=== PATIENT | male | born 1980 | race African-American/Black ===

== ENCOUNTER 2017-06-21 10:00 | Inpatient (IN) ==
[2017-06-21] MEDS ORDERED: FUROSEMIDE 100 MG/10 ML VIAL IV STA (11:44)
[2017-06-21] MEDS ORDERED: METOPROLOL TARTRATE 5 MG/5 ML VIAL IV STA (11:46)
[2017-06-21] MEDS ORDERED: hydrALAZINE 20 MG/1 ML VIAL IV STA (11:46)
[2017-06-21] MEDS ORDERED: METOPROLOL TARTRATE 5 MG/5 ML VIAL IV ONE (12:03)
[2017-06-21] MEDS ORDERED: FUROSEMIDE 100 MG/10 ML VIAL ONE (12:03)
[2017-06-21] MEDS ORDERED: hydrALAZINE 20 MG/1 ML VIAL ONE (12:03)
[2017-06-21 12:04] LABS: Basophils % 0.2 % (0.0-0.8); Eosinophils # 0.1 10*3/uL (0.0-0.87); Eosinophils % 0.6 % (0.00-10.9); Hematocrit 33.4 VOL% (42.0-52.0); Immature Granulocytes % 0.4 %; Immature Granulocytes Absolute 0.04 #; Lymphocytes # 1.1 10*3/uL (1.4-4.0); Lymphocytes % 11.8 % (21.2-54.2); Mean Corpuscular HGB Conc 32.9 GM/DL (32-36); Mean Corpuscular Hemoglobin 24 PG (27-34); Mean Corpuscular Volume 71.4 FL (87-102); Mean Platelet Volume 11.2 FL (9.6-12.0); Monocytes # 0.6 10*3/uL (0.11-0.8); Monocytes % 6.6 % (1.7-12.7); Neutrophils # 7.2 10*3/uL (1.4-7.4); Neutrophils % 80.4 % (38.7-73.9); Platelet Count 307 T/CUMM (130-400); Red Blood Count 4.68 MC/CUMM (3.8-5.5); Red Cell Distribution Width 14.6 % (9.3-17.3)
--- NOTE | 2017-06-21 12:16 | Order Completion Report ---
See report scanned to EMR
[2017-06-21 12:35] LABS: Albumin 2.7 G/DL (3.4-5.0); Bilirubin,Total 0.8 MG/DL (0.2-1.0); Calcium 7.5 MG/DL (8.5-10.1); Potassium 3.5 MMOL/L (3.5-5.1); Total Protein 6.2 G/DL (6.4-8.3)
[2017-06-21 12:36] LABS: Troponin I Only 0.135 NG/ML (0.00-0.045)
--- NOTE | 2017-06-21 13:13 | XRay Report ---
History: Shortness of breath Date: 06/21/2017 Study: Chest x-ray PA and lateral Comparison exam: April 29, 2014 There is continued cardiomegaly. The pulmonary vasculature is not engorged. The mediastinal contours are normal. The lungs and pleural spaces are clear. Osseous structures are similar. Impression: No definite acute process. Continued cardiomegaly without overt CHF PROCEDURE INTERPRETED AT [facility] DEPARTMENT OF RADIOLOGY Final Report Signed by: Dr. Yajaira Bedoya
[2017-06-21 13:15] LABS: Apearance,Urine CLEAR (Clear); Bilirubin,Urine Negative (Negative); Blood, Urine Negative (Negative); Glucose,Urine (UA) Negative (Negative); Hyaline Casts,Urine 1 /LPF (0-3); Ketones,Urine Negative (Negative); Nitrite,Urine Negative (Negative); Protein,Urine 100 MG/DL; Urine Color Straw (Yellow); Urine Specific Gravity 1.006 (1.001-1.035); Urine Urobilinogen < 2.0 EU/DL (0.2-1.0); WBC,Urine 1 /HPF (0-6)
--- NOTE | 2017-06-21 13:38 | Emergency Department Note ---
Joshua Collier Manpreet, am scribing for, and in the presence of, Hugo Kaur MD 11:45. Vincent Collier Doug C, MD, personally performed the services described in this documentation, ascribed by Chu Lewis in my presence, and it is both accurate and complete 338 . Arrival - Arrival Chief Complaint: Blood Pressure Stated Complaint: swollen legs, coughing bad, and sob ED Nursing Triage Note: coughing for several weeks. reports cough is productive mucousy. has been out of bp med for several weeks. also having some swelling in his legs Mode of Arrival: Ambulatory Limitations: No Limitations Source: Patient - History of Present Illness HPI Narrative: Patient is a 29-year-old black male presents emergency room complaining of leg swelling, cough and shortness of breath is going on for several weeks but much worse over the last 2 days. He denies any chest pain associated with this. He tells me he has been out of his blood pressure medicine now for several weeks. He does not have any diaphoresis, nausea or vomiting. He denies any neck shoulder or arm discomfort. States he has noticed that he gets short of breath with the slightest of exertion. He is sleeping okay and has no symptoms suggesting PND or orthopnea. He has a past medical history of hypertension but he denies diabetes or any heart disease. Onset (ago): day(s) (2 days ago) Consistency: constant Severity: moderate Severity scale (1-10): 3 Allergies/Adverse Reactions: Allergies Allergy/AdvReac Type Severity Reaction Status Date / Time No Known Allergies Allergy Unverified 06/21/17 10:17 Home Medications: Home Medications Medication Instructions Recorded Confirmed Type Unable To Obtain [Unable to Obtain] 06/21/17 06/21/17 History Review of System - Review of System 12 point system: reviewed and no additional remarkable complaints except as stated - Review of System Constitutional: Present: other (Elevated B/P). Absent: chills, diaphoresis, fever Respiratory: Present: respiratory distress. Absent: cough, wheezing Cardiovascular: Present: edema (In bilat LE's). Absent: chest pain Gastrointestinal: Absent: abdominal pain, nausea, vomiting, diarrhea Genitourinary male: Absent: dysuria Musculoskeletal: Absent: arm pain, back pain Neurological: Absent: headache, weakness, numbness, paresthesias Medical,Surgical,& Family Hx - Medical History Cardio: History of: Hypertension Endocrine: History of: Diabetes Mellitus (NIDDM) - Surgical History Surgical History: noncontributory - Family History Family History: Reports;: Family Hypertension - Social History Smoking Status: Never smoker Exam Vital Signs: Vital Signs Temperature 98.5 F 06/21/17 10:13 Pulse Rate 89 06/21/17 13:00 Respiratory Rate 20 06/21/17 13:00 Blood Pressure 171/122 06/21/17 13:00 O2 Sat by Pulse Oximetry 96 06/21/17 13:00 - General General appearance: alert - Head Head exam: Present: atraumatic, normocephalic, normal inspection - Eye Eye exam: Present: normal appearance, PERRL, EOMI - ENT ENT exam: Present: normal exam, normal oropharynx, mucous membranes moist - Neck Neck exam: Present: normal inspection, full ROM, trachea midline - Chest Chest inspection: Present: normal inspection, symmetric chest wall rise - Respiratory Respiratory exam: Present: normal lung sounds bilaterally. Absent: respiratory distress - Cardiovascular Cardiovascular exam: Present: regular rate, normal rhythm, normal heart sounds. Absent: murmur, rubs, gallop - Abdominal Exam Abdominal exam: Present: soft, normal bowel sounds - Extremities Exam Extremities exam: Present: normal inspection, full ROM, other (+2 pitting edema) . Absent: tenderness - Back Exam Back exam: Present: normal inspection, full ROM. Absent: tenderness - Neurological Exam Neurological exam: Present: alert, oriented X3, CN II-XII intact - Psychiatric Psychiatric exam: Present: normal affect, normal mood - Skin Skin exam: Present: warm, dry, intact, normal color. Absent: pallor Course Course Narrative: Patient's clinical presentation, laboratory and radiograph findings were discussed with Laurence who is covering the hospitalist service. She will see the patient in the emergency room and determine final disposition. Results - Labs CBC & BMP: 06/21/17 11:55 06/21/17 11:55 Lab Results: I have reviewed the patients labs Labs: Laboratory Tests 06/21/17 11:55 WBC 9.0 RBC 4.68 Hgb 11.0 L Hct 33.4 L MCV 71.4 L MCH 24 L MCHC 32.9 RDW 14.6 Plt Count 307 MPV 11.2 Neut % (Auto) 80.4 H Lymph % (Auto) 11.8 L [place] % (Auto) 6.6 Eos % (Auto) 0.6 Baso % (Auto) 0.2 Neut # (Auto) 7.2 Lymph # (Auto) 1.1 L [place] # (Auto) 0.6 Eos # (Auto) 0.1 Baso # (Auto) 0.0 Immature Gran % 0.4 Nucleated RBC % 0.0 Immature Gran # 0.04 Nucleated RBCs # 0.00 Immature Plt Fraction 0.0 Laboratory Tests 06/21/17 11:55 D-Dimer, Quantitative 2.5 Laboratory Tests 06/21/17 11:55 Sodium 143 Potassium 3.5 Chloride 106 Carbon Dioxide 27 Anion Gap 13.5 BUN 53 H Creatinine 3.90 H GFR Calculation 30 BUN/Creatinine Ratio 13.00 Glucose 116 H Calculated Osmolality 299.0 Calcium 7.5 L Total Bilirubin 0.80 AST 21 ALT 26 Alkaline Phosphatase 52 Troponin I 0.135 H Total Protein 6.2 L Albumin 2.7 L Globulin 3.5 Albumin/Globulin Ratio 0.7 L Laboratory Tests 06/21/17 11:55 B-Natriuretic Peptide 1527 H Laboratory Tests 06/21/17 11:55 Urine Color Straw Urine Appearance Clear Urine pH 6.0 Ur Specific [place] 1.006 Urine Protein 100 Urine Glucose (UA) Negative Urine Ketones Negative Urine Blood Negative Urine Nitrate Negative Urine Bilirubin Negative Urine Urobilinogen < 2.0 H Urine Leukocytes Negative Urine WBC 1 Hyaline Casts 1 Ur Culture Indicated? Not indicated - EKG EKG results: interpreted by ERMD, sinus rhythm (92 bpm) - Diagnostic Findings Procedure: Chest x-ray: report reviewed by me ("CXR: No definite acute process. Continued cardiomegaly without overt CHF.") Disposition Clinical Impression: Uncontrolled hypertension Case discussed with: patient Disposition: Still a Patient Condition: Stable Time of Disposition: 13:38
[2017-06-21] MEDS ORDERED: niCARdipine 25 MG/10 ML VIAL IV ONE (13:54)
[2017-06-21] MEDS: niCARdipine INJ 25 MG in SODIUM CHLORIDE 0.9% 240 ML IV SCH ×3 (14:00→20:58)
[2017-06-21] MEDS ORDERED: ALBUTEROL 2.5 MG/3 ML NEB RESP TX PRN (15:02)
[2017-06-21] MEDS ORDERED: ACETAMINOPHEN 325 MG TABLET PO PRN (15:02)
[2017-06-21] MEDS ORDERED: ONDANSETRON 4 MG/2 ML VIAL IV PRN (15:02)
[2017-06-21] MEDS ORDERED: INFLUENZA VIRUS VACCINE 0.5 ML SYRINGE IM ONE (15:03)
[2017-06-21] MEDS: FUROSEMIDE 40 MG/4 ML VIAL IV SCH (16:10)
--- NOTE | 2017-06-21 16:14 | Hospitalist History & Physical ---
Assessment and Plan (1) Uncontrolled hypertension Status: Acute Assessment and plan: Admit to ICU for close monitoring. Pt. placed on Cardene infusion. PO agents ( Coreg and Procardia) started. Obtain echo. BNP 1527. Repeat in am. CXR didn't show overt chf. Lasix IV 40 mg BID. Consult cardiology in am. Current Visit: Yes (2) Renal failure Status: Acute Assessment and plan: Bun/creatinine 53/3.90. Consult nephrology to evaulate. Renal ultrasound. Avoid nephrotoxic agents. Daily bmps. Current Visit: Yes (3) Elevated troponin Status: Acute Assessment and plan: Elevated troponin could be trivial in light of renal insufficiency. Will cycle enzymes. No cardiac complaints from patient. EKG NSR Current Visit: Yes History of Present Illness Chief complaint: edema and cough History of present illness: Mr. Aguilar is a 37 year old black male with a history of htn and LEATHA that presents to the ED with complaints of leg swelling and productive cough. Pt. is accompanied by family. Pt's states that two days on he woke up and found that his lower extremities were swollen. Pt. reports that this was unusual for him. It states that it has persisted since that time. Pt. also reports a "nagging" cough that produces yellow sputum. He denies chest pain, nausea, or vomiting. Pt. does report shortness of breath with exertion. Pt. states that he has sleep apnea but has not utilized his cpap machine in months due to malfunctions. In ED, patient is noted to be extremely hypertensive (200s/ 120s). Pt. states he has been out of his blood pressure meds for the last week. Pt. is followed by Dr. Crespo but has not seen him. Significant labs reveal a bun/creatinine 53/3.90, glucose 116, BNP 1527, and troponin of 0.135. Pt's case has been discussed with ER physician Dr. Kaur and hospitalist Dr. Martel. Because pt's blood pressure is uncontrolled and there is renal insufficiency noted, pt. will be admitted for further evaluation. Home Medications Medication Instructions Recorded Confirmed Type Unable To Obtain [Unable to Obtain] 06/21/17 06/21/17 History Allergies Allergy/AdvReac Type Severity Reaction Status Date / Time No Known Allergies Allergy Unverified 06/21/17 10:17 Medical,Surgical,& Family Hx - Medical History Cardio: History of: Hypertension Endocrine: History of: Diabetes Mellitus (NIDDM) - Surgical History Cardiac Surgeries: Patient Denies: Cardiac Catheterization Neurologic Surgeries: Patient denies: Neurologic Surgery HEENT Surgeries: Patient denies: Eye Surgery, Tonsilectomy & Adenoidectomy - Family History Family History: Reports;: Family Hypertension Denies;: Family Cancer, Family Diabetes, Family Heart Disease, Family Hematology, Family Psychiatric Problems, Family Stroke, Additional Family History - Social History Smoking Status: Never smoker Frequency of Alcohol Use: None Type of Drug Use: None Marital Status: Single Lives With:: Parent Functional capacity: independent ambulation 12 point system: reviewed and no additional remarkable complaints except as stated - Cardiovascular Cardiovascular: Present: dyspnea on exertion, edema. Absent: chest pain at rest , radiating jaw, neck or arm pain - Respiratory Respiratory: Present: cough (productive) Exam - Constitutional Vitals: Period Temp Pulse Resp BP Sys/Modi Pulse Ox Last 24 Hr 98.5 F-99.1 F 89-105 16-26 153-221/102-141 9-99 General appearance: no acute distress, over weight - Head Head exam: Present: normal inspection, normocephalic - Eye Eye exam: Present: EOMI Pupils: Present: MAYTE - ENT ENT exam: Present: normal exam - Respiratory Respiratory exam: Present: clear to auscultation bilaterally. Absent: wheezes - Cardiovascular Cardiovascular exam: Present: tachycardia - GI/Abdominal GI/Abdominal exam: Present: normal bowel sounds, soft. Absent: tenderness, rebound - Extremities Exam Extremities exam: Present: full ROM, edema - Neurological Exam Neurological exam: Present: alert, oriented X3 - Psychiatric Psychiatric exam: Present: normal affect, normal mood - Skin Skin exam: Present: normal color, warm, dry Results - Labs CBC & BMP: 06/21/17 11:55 06/21/17 11:55 Lab Results: I have reviewed the past 24 hour labs
[2017-06-21] MEDS ORDERED: ZALEPLON 5 MG CAPSULE PO PRN (16:57)
--- NOTE | 2017-06-21 17:07 | Event Note ---
Patient seen and examined and agree with the treatment outlined. He states he has been out of his antihypertensive medicines for the past week. Presented with weakness shortness of breath. He is now on Cardene infusion and continued to show signs of improvement. He has been voiding with Lasix. Cardiovascular regular rate. Lungs are clear to auscultation. Abdomen is soft. Hypertensive urgency. Obesity. TSH. T4. Coreg 6.25 mg p.o. twice daily. Procardia 30 mg XL daily. Omeprazole 20 mg daily CBC BMP in a.m.
--- NOTE | 2017-06-21 19:17 | Ultrasound Report ---
History: Renal failure Date: 06/21/2017 Study: Renal ultrasound Comparison exam: November 22, 2013 Real-time ultrasound images are captured and archived. The right kidney measures 14.2 x 9.3 x 11.0 cm; the left kidney measures 14.3 x 8.2 x 0.5 cm. There is no hydronephrosis. 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 There is no obvious solid mass or hydronephrosis. Numerous simple cysts and septated class II F renal cysts are scattered in the right kidney, the largest 2F cyst of which measures 4.6 cm diameter in the mid right kidney. Similar-appearing cysts are noted on the left, the largest of which measures 6.4 cm. The renal parenchyma is hyperechoic to the hepatic parenchyma compatible with medical renal parenchymal disease. There is gross color Doppler flow to either kidney. Impression: No hydronephrosis. Medical renal parenchymal disease. Numerous simple and class II F renal cysts are present bilaterally. Recommend periodic follow-up renal ultrasound at 6-12 month intervals PROCEDURE INTERPRETED AT [facility] DEPARTMENT OF RADIOLOGY Final Report Signed by: Dr. Yajaira Bedoya
[2017-06-21 20:30] LABS: Troponin I Only 0.145 NG/ML (0.00-0.045)
[2017-06-21] MEDS: CARVEDILOL 6.25 MG TABLET PO SCH (21:24)
[2017-06-22 00:43] LABS: Basophils % 0.4 % (0.0-0.8); Eosinophils # 0.1 10*3/uL (0.0-0.87); Eosinophils % 1.4 % (0.00-10.9); Hematocrit 32.5 VOL% (42.0-52.0); Hemoglobin 10.7 GM/DL (14.0-18.0); Immature Granulocytes % 0.3 %; Immature Granulocytes Absolute 0.03 #; Lymphocytes % 10.9 % (21.2-54.2); Mean Corpuscular HGB Conc 32.9 GM/DL (32-36); Mean Corpuscular Hemoglobin 23 PG (27-34); Mean Platelet Volume 10.7 FL (9.6-12.0); Monocytes # 0.6 10*3/uL (0.11-0.8); Monocytes % 6.6 % (1.7-12.7); Neutrophils # 7.3 10*3/uL (1.4-7.4); Neutrophils % 80.4 % (38.7-73.9); Platelet Count 307 T/CUMM (130-400); Red Blood Count 4.58 MC/CUMM (3.8-5.5); Red Cell Distribution Width 14.6 % (9.3-17.3); White Blood Count 9.1 T/CUMM (4-12)
[2017-06-22] MEDS: niCARdipine INJ 25 MG in SODIUM CHLORIDE 0.9% 240 ML IV SCH ×2 (00:45→14:11)
[2017-06-22 00:54] LABS: Calcium 7.6 MG/DL (8.5-10.1); Magnesium 1.4 MG/DL (1.8-2.4); Osmolality,Calculated 300.8 MOS/KG (273-304); Potassium 3.1 MMOL/L (3.5-5.1); Risk Ratio 4.28
[2017-06-22 00:58] LABS: Troponin I Only 0.245 NG/ML (0.00-0.045)
[2017-06-22 05:39] LABS: Troponin I Only 0.321 NG/ML (0.00-0.045)
--- NOTE | 2017-06-22 07:30 | Hospitalist Progress Note ---
Assessment and Plan - Time spent with patient Time spent with patient: Less than 30 minutes (1) Hypertensive urgency Status: Acute Assessment and plan: Patient was admitted with hypertensive urgency. He has been on IV Cardene which is now been discontinued. He has been started on Coreg and Procardia. We will continue to follow and if his blood pressures remain stable can be transferred out of the ICU later today if consultants agree. Current Visit: Yes (2) Renal failure Status: Acute Assessment and plan: Patient was admitted with renal failure, creatinine 3.9 which has remained stable. Nephrology will be consulted. Current Visit: Yes (3) Elevated troponin Status: Acute Assessment and plan: Patient was noted to have elevated troponins which have been trending upwards. He denies any chest pain. This is likely secondary to his hypertensive urgency and underlying renal failure. However cardiology has been consulted and will await their recommendations. Current Visit: Yes Hospitalist: Subjective Interval history: Patient has been seen and examined. Chart has been reviewed. He is somewhat lethargic this morning but easily aroused and answers questions appropriately. He denies any chest pain, shortness breath, abdominal pain, nausea, vomiting, diarrhea, constipation. Exam - Constitutional Vitals: Period Temp Pulse Resp BP Sys/Modi Pulse Ox Last 24 Hr 98.5 F-99.8 F 88-106 11-37 119-221/62-141 85-99 General appearance: no acute distress - Head Head exam: Present: normocephalic, atraumatic - Eye Eye exam: Present: EOMI Pupils: Present: MAYTE - ENT ENT exam: Present: normal exam - Neck Neck exam: Present: normal inspection. Absent: lymphadenopathy, meningismus, tenderness, thyromegaly - Respiratory Respiratory exam: Present: clear to auscultation bilaterally. Absent: rales, rhonchi, wheezes - Cardiovascular Cardiovascular exam: Present: regular rate and rhythm. Absent: JVD, systolic murmur, tachycardia - GI/Abdominal GI/Abdominal exam: Present: normal bowel sounds, soft. Absent: mass, tenderness , rebound - Extremities Exam Extremities exam: Present: normal capillary refill. Absent: calf tenderness, edema - Back Exam Back exam: Present: normal inspection - Neurological Exam Neurological exam: Present: alert, oriented X3, CN II-XII intact. Absent: motor sensory deficit - Psychiatric Psychiatric exam: Present: normal affect, normal mood. Absent: agitated, anxious - Skin Skin exam: Present: warm, dry. Absent: rash Results - Labs CBC & BMP: 06/22/17 00:19 06/22/17 00:19 Lab Results: I have reviewed the past 24 hour labs
[2017-06-22] MEDS: CARVEDILOL 6.25 MG TABLET PO SCH ×2 (08:37→21:29)
[2017-06-22] MEDS: PANTOPRAZOLE 40 MG TABLET PO SCH (08:37)
[2017-06-22] MEDS: POTASSIUM CHLORIDE 20 MEQ TABLET PO SCH ×2 (08:38→14:22)
[2017-06-22] MEDS: FUROSEMIDE 40 MG/4 ML VIAL IV SCH ×2 (08:38→15:32)
--- NOTE | 2017-06-22 11:19 | Nephrology Consult Note ---
History of Present Illness Chief complaint: Hypertension shortness of breath. History of present illness: Mr. Aguilar is a 37 year old male patient with a history of hypertension and diabetes who presented on yesterday with severe hypertension shortness of breath. The patient has required Cardene infusion for blood pressure management. He has now been switched to p.o. antihypertensive medications. Of note, patient mentions that he had been out of his medicines for some time. Serum creatinine is noted to be above 3. Nephrology is been consulted for renal issues. On further interview with the patient patient thinks he may have seen a safety deposit clerk over several years ago and he has not followed with his primary provider in about 2-3 years as well. At present no shortness of breath or chest pain. No rashes or bruises reported by patient. Undetermined patient uses NSAID medications. Serum creatinine noted to be 3.9 today. Renal ultrasound done yesterday shows evidence of medical renal disease. There is no history of dysuria or hematuria. Home Medications Medication Instructions Recorded Confirmed Type Unable To Obtain [Unable to Obtain] 06/21/17 06/21/17 History Allergies Allergy/AdvReac Type Severity Reaction Status Date / Time No Known Allergies Allergy Unverified 06/21/17 10:17 Medical,Surgical,& Family Hx - Medical History Cardio: History of: Hypertension Endocrine: History of: Diabetes Mellitus (NIDDM) - Surgical History Cardiac Surgeries: Patient Denies: Cardiac Catheterization Neurologic Surgeries: Patient denies: Neurologic Surgery HEENT Surgeries: Patient denies: Eye Surgery, Tonsilectomy & Adenoidectomy - Family History Family History: Reports;: Family Hypertension Denies;: Family Cancer, Family Diabetes, Family Heart Disease, Family Hematology, Family Psychiatric Problems, Family Stroke, Additional Family History - Social History Smoking Status: Never smoker Frequency of Alcohol Use: None Type of Drug Use: None Review of Systems Constitutional: fatigue, no anorexia, no chills, no fever(s) Gastrointestinal: no constipation Genitourinary: no dysuria, no flank pain Musculoskeletal: no arthralgias, no back pain Exam - Vital Signs Vital signs: Period Temp Pulse Resp BP Sys/Modi Pulse Ox Last 24 Hr 98.6 F-99.8 F 88-106 11-37 119-221/62-141 85-99 - General Appearance General appearance: well-developed, well-nourished EENT: ATNC Neck: no carotid bruit, supple Respiratory: clear Cardiology: no edema, regular rate, regular rhythm Gastrointestinal: normoactive bowel sounds, no tenderness Integumentary: no rash Neurologic: alert and oriented x3, CN 3-12 intact Musculoskeletal: no clubbing Psychiatric: mood/affect appropriate, cooperative Results - Labs CBC & BMP: 06/22/17 00:19 06/22/17 00:19 Assessment and Plan (1) Diabetes Status: Chronic Current Visit: Yes Qualifiers: Diabetes mellitus type: type 2 Chronic kidney disease stage: stage 3 ( moderate) (2) Renal failure Status: Chronic Current Visit: Yes Qualifiers: Chronic kidney disease stage: stage 3 (moderate) (3) Elevated troponin Status: Acute Current Visit: Yes (4) Hypertensive urgency Status: Resolved Assessment and plan: Medical compliance. Current Visit: Yes (5) Obesity Status: Chronic Current Visit: Yes Qualifiers: Obesity type: due to excess calories Body mass index: BMI 39.0-39.9
--- NOTE | 2017-06-22 13:37 | Order Completion Report ---
See report scanned to EMR
[2017-06-22] MEDS ORDERED: POTASSIUM CHLORIDE 20 MEQ TABLET PO ONE (14:30)
[2017-06-23 06:27] LABS: Basophils % 0.5 % (0.0-0.8); Eosinophils # 0.3 10*3/uL (0.0-0.87); Eosinophils % 4.4 % (0.00-10.9); Hematocrit 31.7 VOL% (42.0-52.0); Hemoglobin 10.3 GM/DL (14.0-18.0); Immature Granulocytes % 0.4 %; Immature Granulocytes Absolute 0.03 #; Lymphocytes # 1.2 10*3/uL (1.4-4.0); Lymphocytes % 15.3 % (21.2-54.2); Mean Corpuscular HGB Conc 32.5 GM/DL (32-36); Mean Corpuscular Hemoglobin 23 PG (27-34); Mean Platelet Volume 11.5 FL (9.6-12.0); Monocytes # 0.8 10*3/uL (0.11-0.8); Monocytes % 10.5 % (1.7-12.7); Neutrophils # 5.4 10*3/uL (1.4-7.4); Neutrophils % 68.9 % (38.7-73.9); Platelet Count 304 T/CUMM (130-400); Red Cell Distribution Width 14.6 % (9.3-17.3); White Blood Count 7.8 T/CUMM (4-12)
[2017-06-23 06:56] LABS: Calcium 7.4 MG/DL (8.5-10.1); Osmolality,Calculated 298.1 MOS/KG (273-304); Potassium 3.4 MMOL/L (3.5-5.1)
[2017-06-23] MEDS ORDERED: CARVEDILOL 25 MG TABLET PO SCH (08:13)
[2017-06-23] MEDS: PANTOPRAZOLE 40 MG TABLET PO SCH (08:14)
[2017-06-23] MEDS: FUROSEMIDE 40 MG/4 ML VIAL IV SCH (08:14)
--- NOTE | 2017-06-23 09:14 | Cardiology Consult Note ---
Amira, Ariane Hansen RN, am scribing for, and in the presence of, Farhad Sanchez MD 09 :07. Assessment and Plan - Time spent with patient Time spent with patient: Greater than 30 minutes (Due to assessment, planning, documentation, medication review) (1) Troponin I above reference range Status: Resolved Assessment and plan: 37-year-old BM, admitted with hypertensive urgency. Demand ischemia, mild cardiomyopathy, severe EFRAIN, on CKD. Past medical history hypertension, diabetes , LEATHA, renal insufficiency, obesity.Rahul out of antihypertensives medicines approximately 1 week ago. Required brief IV Cardene infusion, BP much improved now. Echo: LVEF 45%, mild DD EKG: SR, ST 90s -Hypertensive urgency. Now, BP back to normal with Coreg and nifedipine. -Type 2 diabetes mellitus, hemoglobin A1c 6.8. Start aspirin 81 mg daily. -He will need to resume using CPAP for LEATHA -Mild CMP, borderline troponins with normal CPK-MB. I doubt ACS. Has LVH. Recommend to use maximum tolerated dose of beta-eligio, then reassess CMP with an ultrasound in several weeks. He may need ischemic evaluation, if the CMP persists, despite good BP control -Polycystic kidney disease, EFRAIN on CKD. This limits use of an FABIAN inhibitor at this time. If blood pressure becomes elevated, we can try adding Imdur/ hydralazine. -Diuresis managed by renal. No signs of significant volume overload or pulmonary congestion -Cardiac rehab for risk factor modification. We discussed his exercise regimen , I suggest not to do isometric exercises, until the blood pressure becomes better controlled. -LDL slightly above 100. If unable to lose weight, improve his metabolic profile, he would be a candidate for statin given his comorbidities -Follow up in [facility] with Dr. Sanchez in 4 weeks -Please call with further questions. He may be moved off telemetry Current Visit: Yes (2) Hypertensive urgency Status: Resolved Assessment and plan: See Impression/Plan Above. Current Visit: Yes (3) Uncontrolled hypertension Status: Chronic Assessment and plan: See Impression/Plan Above. Current Visit: Yes (4) Diabetes Status: Chronic Assessment and plan: See Impression/Plan Above. Current Visit: Yes Qualifiers: Diabetes mellitus type: type 2 Chronic kidney disease stage: stage 3 ( moderate) (5) Obesity Status: Chronic Assessment and plan: See Impression/Plan Above. Current Visit: Yes Qualifiers: Obesity type: due to excess calories Body mass index: BMI 39.0-39.9 (6) Renal failure Status: Chronic Assessment and plan: See Impression/Plan Above. Current Visit: Yes Qualifiers: Chronic kidney disease stage: stage 3 (moderate) History of Present Illness - Data of Consult Patient: new to practice Consult date: 06/23/17 Requesting Physician: iLam Islas - Consult Narrative Reason for consult: Abnormal troponin, hypertensive emergency History of present illness: Mr. Aguilar, 37-year-old BM, PMHx obesity, diabetes and hypertension (poorly controlled) and LEATHA. Noncompliant with CPAP machine for several months now due to reported malfunctions. He recently ran out of antihypertensive medications, did not refill them. Admitted to [facility] on 06/21 with c/o lower extremity swelling, productive cough, and some shortness of breath. BP was significantly elevated 220s/120s. Since admission, he has been initiated on beta-eligio and calcium channel eligio. Required brief IV Cardene infusion for BP control, and BP is more improved now. Diuresis with IV Lasix. Initial lab work showed troponin 0.135 with creatinine 3.9. Cardiology asked to see for hypertensive urgency, abnormal troponin, and shortness of breath. Echocardiogram with LVH 45%, mild diastolic dysfunction, mild biatrial enlargement. No pulmonary hypertension, effusion. Renal ultrasound shows chronic kidney disease, and bilateral renal cysts. Nephrology has been consulted to see during admission also. This morning, patient is resting comfortably, lying flat in bed in no acute respiratory distress. Denies experiencing any chest pain. Reports he did have some shortness of breath during acute hypertensive urgency but is now resolved. No significant lower extremity edema upon physical exam. No palpitations, PND. Serial troponin levels have trended down with most recent 0.243, normal CPK and CK-MB. Reports that he does take antidiabetic medications, but he is not certain what his glucose levels have been running home. He has not had any exertional chest pain or dyspnea recently. Mild hypokalemia, 3.4. Creatinine 4.2. Cell counts are stable, and he is afebrile. SBP 120-140 mmHg. Telemetry : SR, mild ST 90s, occasional PAC. No ectopy or dysrhythmia. Overall, patient is much improved since admission to hospital. ROS: -denies chest pain or tightness, palpitations -denies dyspnea. admits productive cough. -denies abd pain, N/V. Good appetite. CC: Kristina Bang MD - Home Medications and Allergies Home Medications: Home Medications Medication Instructions Recorded Confirmed Type Unable To Obtain [Unable to Obtain] 06/21/17 06/21/17 History Allergies/Adverse Reactions: Allergies Allergy/AdvReac Type Severity Reaction Status Date / Time No Known Allergies Allergy Unverified 06/21/17 10:17 - Constitutional Constitutional: Present: daytime sleepiness. Absent: anorexia, chills, excessive sweating, fatigue, fever(s), frequent falls, weakness, weight gain, weight loss - EENT Eyes: Absent: blurry vision Ears: Absent: decreased hearing Nose, mouth and throat: Absent: dysphagia, epistaxis, tongue swelling, vertigo - Cardiovascular Cardiovascular: Present: dyspnea on exertion (Resolved now), edema (Trace pretibial). Absent: chest pain at rest, chest pain with activity, diaphoresis, radiating jaw, neck or arm pain, orthopnea, palpitations, PND - Respiratory Respiratory: Present: cough, change in phlegm color (Yellow phlegm). Absent: dyspnea, dyspnea on exertion - Gastrointestinal Gastrointestinal: Absent: abdominal pain, constipation, diarrhea, dysphagia, early satiety, melena, nausea, vomiting, jaundice - Genitourinary Genitourinary: Absent: difficulty urinating, dysuria, flank pain, nocturia - Musculoskeletal Musculoskeletal: Absent: arthralgias, limited range of motion, muscle weakness, myalgias - Neurological Neurological: Absent: abnormal gait, abnormal speech, confusion, dizziness, syncope, tremor(s) - Psychiatric Psychiatric: Absent: anxiety, depression - Endocrine Endocrine: Absent: cold intolerance, heat intolerance - Hematologic/Lymphatic Hematologic/Lymphatic: Absent: easy bleeding, easy bruising Medical,Surgical,& Family Hx - Medical History Cardio: History of: Hypertension No history of: Cardiac Dysrhythmia, CHF, CAD, PVD Psychological: No history of: Anxiety Disorders, Depression Neurology: No history of: Cerebrovascular Accident, TIA Endocrine: History of: Diabetes Mellitus (NIDDM) No history of: Dyslipidemia, Thyroid Disorder Respiratory: History of: Obstructive Sleep Apnea No history of: COPD, Pulmonary Hypertension Renal: History of: Renal Failure Genitourinary: No history of: Kidney Stones, Prostate Problems Gastrointestinal: No history of: GERD, Gastrointestinal Bleed, Hepatitis Musculoskeletal: No history of: Back/Neck Problems, Degenerative Disk Disease Hematology: No history of: Anemia, Blood Transfusion Reaction Reproductive: No histroy: Reproductive Problems Other: No history of: Cancer, HIV - Surgical History Cardiac Surgeries: Patient Denies: Cardiac Catheterization Neurologic Surgeries: Patient denies: Neurologic Surgery HEENT Surgeries: Patient denies: Eye Surgery, Tonsilectomy & Adenoidectomy - Family History Family History: Reports;: Family Hypertension Denies;: Family Cancer, Family Diabetes, Family Heart Disease, Family Hematology, Family Psychiatric Problems, Family Stroke, Additional Family History - Social History Smoking Status: Never smoker Frequency of Alcohol Use: None Type of Drug Use: None Functional capacity: independent ambulation Physical Examination Vital Signs Temp Pulse Resp BP Pulse Ox 98.5 F 101 H 20 190/140 94 L 06/21/17 10:13 06/21/17 10:13 06/21/17 10:13 06/21/17 10:13 06/21/17 10:13 General: Present: Appears Well, No Apparent Distress HEENT: Present: Normocephaly, Mucus Membranes Moist Neck: Present: Supple Neck, Midline Trachea, No JVD/HJR, No Bruit, No Thyromegaly Cardiac: Present: Reg Rate and Rhythm. Absent: Systolic Murmur Lungs: Present: Normal Breath Sounds, No Wheeze, Rales, Rhonchi Neuro: Present: Grossly Intact Abdomen: Present: Soft, Active Bowel Sounds. Absent: Tender Skin: Present: Clear, Black. Absent: Rash Gait: Present: Normal Gait Extremities: Present: No Clubbing, No Cyanosis, No Edema Result/EKG - Labs CBC & BMP: 06/23/17 05:46 06/23/17 05:46 Lab Results: I have reviewed the past 24 hour labs Labs: Laboratory Results - last 24 hr 06/22/17 06/22/17 06/22/17 14:35 17:25 19:46 WBC RBC Hgb Hct MCV MCH MCHC RDW Plt Count MPV Neut % (Auto) Lymph % (Auto) Placer % (Auto) Eos % (Auto) Baso % (Auto) Neut # (Auto) Lymph # (Auto) Placer # (Auto) Eos # (Auto) Baso # (Auto) Immature Gran % Nucleated RBC % Immature Gran # Nucleated RBCs # Immature Plt Fraction Sodium Potassium Chloride Carbon Dioxide Anion Gap BUN Creatinine GFR Calculation BUN/Creatinine Ratio Glucose Calculated Osmolality Calcium Troponin I 0.282 H 0.286 H 0.243 H 06/23/17 06/23/17 05:46 05:46 WBC 7.8 RBC 4.40 Hgb 10.3 L Hct 31.7 L MCV 72.0 L MCH 23 L MCHC 32.5 RDW 14.6 Plt Count 304 MPV 11.5 Neut % (Auto) 68.9 Lymph % (Auto) 15.3 L Placer % (Auto) 10.5 Eos % (Auto) 4.4 Baso % (Auto) 0.5 Neut # (Auto) 5.4 Lymph # (Auto) 1.2 L Placer # (Auto) 0.8 Eos # (Auto) 0.3 Baso # (Auto) 0.0 Immature Gran % 0.4 Nucleated RBC % 0.0 Immature Gran # 0.03 Nucleated RBCs # 0.00 Immature Plt Fraction 0.0 Sodium 142 Potassium 3.4 L Chloride 104 Carbon Dioxide 25 Anion Gap 16.4 H BUN 56 H Creatinine 4.20 H GFR Calculation 27 BUN/Creatinine Ratio 13.00 Glucose 101 Calculated Osmolality 298.1 Calcium 7.4 L Troponin I - Diagnostic Findings Procedure: Chest x-ray: image reviewed by me, report reviewed by me (06/21/17: Cardiomegaly, no overt CHF) - EKG EKG results: interpreted by me, no acute changes EKG shows: sinus rhythm Laura Collier Attila, MD, personally performed the services described in this documentation, ascribed by Ariane Hansen RN in my presence, and it is both accurate and complete 913 .
[2017-06-23] MEDS ORDERED: ASPIRIN EC 81 MG TABLET PO SCH (09:30)
--- NOTE | 2017-06-23 11:30 | Discharge Summary ---
Hospital Course - Hospital Course Hospital Course: Mr Aguilar ran out of his antiHTn meds about a week before presenting to the ER with chest pain and extremely elevated BP. He required Cardene initially but was converted to his usual oral meds which controlled his blood pressure. It was also noted that he had progression of his renal disease and he was seen by nephrology who will follow him in the clinic for Epogen and was counselled to avoid NSAIDS or other nephrotoxic agents. He will also see DR Sanchez to follow up inclinic. While here he recommended starting asa, avoiding FABAIN at this time due to renal disease, begin modified exercise routine, and to lose weight. His chest pain resolved when his blood pressure was controlled. He was back to feeling like his usual self. He will also follow up with Dr Crespo his PCP in clinic. - Time spent with patient Time with patient DS: Greater than 30 minutes (37 minutes required for discharge planning and coordination of care medicine reconciliation and documentation) Diagnosis - Discharge Diagnosis (1) Elevated troponin Status: Resolved (2) Chronic kidney disease Status: Chronic (3) Diabetes Status: Chronic (4) Obesity Status: Chronic (5) Uncontrolled hypertension Status: Chronic Specialty Discharge - Follow Up or Referrals Follow up with: Your, PCP [Other] - 5 Days Farhad Sanchez MD [Physician] - 07/29/17 2:10 pm (4 weeks. EKG) Shayan Martel Jr., MD [Physician] - 07/30/17 9:00 pm Discharge Plan - Discharge Data Disposition: Disch To Home/Self Care Condition at Discharge: Stable Discharge Diet: diabetic diet, heart healthy Activity: resume usual activities as tolerated (noisometric exercises per caridology) - Discharge Medications New Carvedilol [Coreg] 25 mg PO BID #60 tablet NIFEdipine XL TAB [Procardia Xl] 30 mg PO DAILY #30 tablet Aspirin EC Tab 81 mg PO DAILY tablet - Follow Up or Referral Follow Up: Your, PCP [Other] - 5 Days Farhad Sanchez MD [Physician] - 07/29/17 2:10 pm (4 weeks. EKG) Shayan Martel Jr., MD [Physician] - 07/30/17 9:00 pm - Forms/Instructions Instructions: Heart Healthy Diet (GEN), Chronic Hypertension (GEN) Exam - Constitutional Vitals: Period Temp Pulse Resp BP Sys/Modi Pulse Ox Last 24 Hr 96.5 F-98.6 F 88-94 16-22 119-147/65-93 85-98 General appearance: no acute distress, morbidly obese - Eye Eye exam: Present: EOMI. Absent: scleral icterus - Respiratory Respiratory exam: Present: clear to auscultation bilaterally - Cardiovascular Cardiovascular exam: Present: regular rate and rhythm - GI/Abdominal GI/Abdominal exam: Present: normal bowel sounds, soft. Absent: tenderness - Extremities Exam Extremities exam: Absent: edema Discharge Results Labs on day of discharge: Labs from last 24 hours 06/23/17 06/23/17 06/22/17 05:46 05:46 19:46 WBC 7.8 RBC 4.40 Hgb 10.3 L Hct 31.7 L MCV 72.0 L MCH 23 L MCHC 32.5 RDW 14.6 Plt Count 304 MPV 11.5 Neut % (Auto) 68.9 Lymph % (Auto) 15.3 L [place] % (Auto) 10.5 Eos % (Auto) 4.4 Baso % (Auto) 0.5 Neut # (Auto) 5.4 Lymph # (Auto) 1.2 L Deuel # (Auto) 0.8 Eos # (Auto) 0.3 Baso # (Auto) 0.0 Immature Gran % 0.4 Nucleated RBC % 0.0 Immature Gran # 0.03 Nucleated RBCs # 0.00 Immature Plt Fraction 0.0 Sodium 142 Potassium 3.4 L Chloride 104 Carbon Dioxide 25 Anion Gap 16.4 H BUN 56 H Creatinine 4.20 H GFR Calculation 27 BUN/Creatinine Ratio 13.00 Glucose 101 Calculated Osmolality 298.1 Calcium 7.4 L Troponin I 0.243 H 06/22/17 06/22/17 17:25 14:35 WBC RBC Hgb Hct MCV MCH MCHC RDW Plt Count MPV Neut % (Auto) Lymph % (Auto) [place] % (Auto) Eos % (Auto) Baso % (Auto) Neut # (Auto) Lymph # (Auto) Deuel # (Auto) Eos # (Auto) Baso # (Auto) Immature Gran % Nucleated RBC % Immature Gran # Nucleated RBCs # Immature Plt Fraction Sodium Potassium Chloride Carbon Dioxide Anion Gap BUN Creatinine GFR Calculation BUN/Creatinine Ratio Glucose Calculated Osmolality Calcium Troponin I 0.286 H 0.282 H DS: Provider Date of admission: 06/21/17 13:39 Primary care physician: . No PCP Attending physician on admission: Shayan Martel Jr., MD Consults: 06/21/17 15:21 Consult to Pastoral Services [CONS] Routine Comment: Pastoral Screen: Request Chemist Water Purification Visit Pastoral Screen Source of Request: Patient 06/22/17 07:11 Consult to Physician [CONS] Routine Comment: renal failure Consulting Provider: Shayan Martel Jr. 06/22/17 07:34 Consult to Physician [CONS] Routine Comment: elevated troponin, HTN urgency Consulting Provider: Cardiology - [facility] 06/23/17 09:03 Consult to Cardiac Rehabilitation [CONS] Routine Reason for Cardiac Rehabilitation: Risk Factor Modification Discharging clinician: Kristina Bang MD
--- NOTE | 2017-06-23 14:56 | Nephrology Progress Note ---
Nephrology - PN: Subj Interval history: The patient is resting. Blood pressure is better controlled. No shortness of breath or chest pain. Exam (PN)-Nephrology - Vital Signs Vital signs: Period Temp Pulse Resp BP Sys/Modi Pulse Ox Last 24 Hr 96.5 F-98.6 F 90-94 16- 122-144/72-93 90-98 - General Appearance General appearance: well-developed, well-nourished EENT: ATNC Neck: supple Respiratory: clear Cardiology: regular rate, regular rhythm Gastrointestinal: normoactive bowel sounds, no tenderness Neurologic: alert and oriented x3 Psychiatric: mood/affect appropriate, cooperative - Lab 06/23/17 05:46 06/23/17 05:46 Most recent lab results Calcium 7.4 MG/DL (8.5-10.1) L 06/23/17 05:46 Magnesium 1.4 MG/DL (1.8-2.4) L 06/22/17 00:19 Assessment and Plan (1) Diabetes Status: Chronic Current Visit: Yes Qualifiers: Diabetes mellitus type: type 2 Chronic kidney disease stage: stage 3 ( moderate) (2) Renal failure Status: Chronic Current Visit: Yes Qualifiers: Chronic kidney disease stage: stage 3 (moderate) (3) Elevated troponin Status: Acute Current Visit: Yes (4) Hypertensive urgency Status: Resolved Assessment and plan: Medical compliance. Current Visit: Yes (5) Obesity Status: Chronic Current Visit: Yes Qualifiers: Obesity type: due to excess calories Body mass index: BMI 39.0-39.9 (6) Chronic kidney disease Status: Chronic Assessment and plan: Epogen follow patient in 1 week with a BMP. Encourage patient to avoid nephrotoxic agents. No NSAID medications. Continue with antihypertensive medicines. Current Visit: Yes Qualifiers: Chronic kidney disease stage: stage 3 (moderate) Qualified Code(s): N18.3 - Chronic kidney disease, stage 3 (moderate) Specialty Discharge - Follow Up or Referrals Follow up with: Your, PCP [Other] - 5 Days Farhad Sanchez MD [Physician] - 07/29/17 2:10 pm (4 weeks. EKG) Shayan Martel Jr., MD [Physician] - 07/30/17 9:00 pm
[2017-06-23 16:10] VITALS: BP 132/86
[2017-06-23] MEDS ORDERED: INFLUENZA VIRUS VACCINE 0.5 ML SYRINGE IM ONE (16:20)
[2017-06-23] MEDS ORDERED: PRAVASTATIN 20 MG TABLET PO SCH (21:00)
== END 2017-06-23 17:01 | disposition home or self-care (01) | DRG 683 ==
LOC: N.ED 10:00 → SUATTDRO 13:39 → N.EDINP 13:39 → N.ICU 14:14 → N.TELEN 06-22 14:59
PROVIDERS: ADMIT Internal Medicine Nephrology; ATTEND Internal Medicine

== ENCOUNTER 2017-11-27 02:12 | Inpatient (IN) ==
[2017-11-27] MEDS ORDERED: MORPHINE 2 MG/1 ML SYRINGE IV STA (04:32)
[2017-11-27] MEDS ORDERED: hydrALAZINE 20 MG/1 ML VIAL IV STA (04:32)
[2017-11-27] MEDS ORDERED: ALBUTEROL/IPRATROPIUM 3 ML NEB RESP TX STA (04:32)
[2017-11-27] MEDS ORDERED: FUROSEMIDE 100 MG/10 ML VIAL IV STA (04:32)
[2017-11-27] MEDS ORDERED: NITROGLYCERIN 2% OINT 1 INCH/GM PACK TOP STA (04:32)
[2017-11-27] MEDS ORDERED: NITROGLYCERIN 2% OINT 1 INCH/GM PACK TOP ONE (05:02)
[2017-11-27] MEDS ORDERED: FUROSEMIDE 100 MG/10 ML VIAL ONE (05:03)
[2017-11-27] MEDS ORDERED: hydrALAZINE 20 MG/1 ML VIAL ONE (05:03)
[2017-11-27 05:11] LABS: Basophils # 0.1 10*3/uL (0.0-0.2); Basophils % 0.5 % (0.0-0.8); Eosinophils # 0.1 10*3/uL (0.0-0.87); Eosinophils % 0.6 % (0.00-10.9); Hematocrit 32.5 VOL% (42.0-52.0); Hemoglobin 10.6 GM/DL (14.0-18.0); Immature Granulocytes % 0.6 %; Immature Granulocytes Absolute 0.07 #; Lymphocytes # 1.8 10*3/uL (1.4-4.0); Lymphocytes % 14.8 % (21.2-54.2); Mean Corpuscular HGB Conc 32.6 GM/DL (32-36); Mean Corpuscular Hemoglobin 25 PG (27-34); Mean Corpuscular Volume 75.4 FL (87-102); Mean Platelet Volume 11.3 FL (9.6-12.0); Monocytes # 0.8 10*3/uL (0.11-0.8); Monocytes % 6.7 % (1.7-12.7); NRBC # 0.02 10*3/uL; Neutrophils # 9.5 10*3/uL (1.4-7.4); Neutrophils % 76.8 % (38.7-73.9); Platelet Count 301 T/CUMM (130-400); Red Blood Count 4.31 MC/CUMM (3.8-5.5); Red Cell Distribution Width 15.1 % (9.3-17.3); White Blood Count 12.3 T/CUMM (4-12)
[2017-11-27 05:22] LABS: INR 1.3; PT Patient Result 13.6 SECS
[2017-11-27 05:23] LABS: Apearance,Urine Slightly Hazy (Clear); Bacteria,Urine Occasional /HPF (Few); Bilirubin,Urine Negative (Negative); Blood, Urine Negative (Negative); Glucose,Urine (UA) Negative (Negative); Ketones,Urine Negative (Negative); Mucus,Urine Occasional /LPF (Occasional); Nitrite,Urine Negative (Negative); Protein,Urine >=500 MG/DL; RBC,Urine <1 /HPF (0-4); Squamous Epithelial Cell,Urine Occasional /HPF (0-10); Urine Color Yellow (Yellow); Urine Specific Gravity 1.009 (1.001-1.035); Urine Urobilinogen < 2.0 EU/DL (0.2-1.0); WBC,Urine 9 /HPF (0-6)
[2017-11-27 05:30] LABS: Barbiturates Screen,Urine Negative (Negative); Benzodiazepines Screen,Urine Negative (Negative); Cannabinoid Screen,Urine Negative (Negative); Opiate Screen,Urine Negative (Negative); Phencyclidine Screen,Urine Negative (Negative)
[2017-11-27 05:35] LABS: Albumin 2.8 G/DL (3.4-5.0); Bilirubin,Total 1.1 MG/DL (0.2-1.0); Calcium 7.9 MG/DL (8.5-10.1); Osmolality,Calculated 295.4 MOS/KG (273-304); Potassium 4.1 MMOL/L (3.5-5.1); Total Protein 7.1 G/DL (6.4-8.3)
[2017-11-27 05:36] LABS: Troponin I Only 0.154 NG/ML (0.00-0.045)
[2017-11-27] MEDS ORDERED: MAGNESIUM SULF RIDER 2 GM in PREMIX 1 EACH IV STA (05:40)
[2017-11-27] MEDS ORDERED: ENOXAPARIN 100 MG/ML SYRINGE SUBCUT STA (05:41)
[2017-11-27] MEDS ORDERED: MAGNESIUM SULF RIDER 50 ML IV ONE (05:57)
[2017-11-27] MEDS ORDERED: niCARdipine 25 MG/10 ML VIAL IV ONE ×2 (05:57→09:24)
[2017-11-27] MEDS ORDERED: MORPHINE 2 MG/1 ML SYRINGE ONE (05:57)
[2017-11-27] MEDS: niCARdipine INJ 25 MG in SODIUM CHLORIDE 0.9% 240 ML IV SCH (05:59)
[2017-11-27] MEDS ORDERED: HEPARIN DRIP 25,000 UNITS/500 ML PREMIX IV ONE (06:21)
[2017-11-27] MEDS: HEPARIN DRIP 25,000 UNITS/500 ML PREMIX IV SCH ×2 (06:24→17:42)
[2017-11-27] MEDS ORDERED: MORPHINE 2 MG/1 ML SYRINGE IV PRN (08:12)
[2017-11-27] MEDS ORDERED: ONDANSETRON 4 MG/2 ML VIAL IV PRN (08:12)
[2017-11-27] MEDS ORDERED: DEXTROSE 50% 25 GM/50 ML VIAL IV PRN (08:12)
[2017-11-27] MEDS ORDERED: GLUCAGON 1 MG VIAL IM PRN (08:12)
[2017-11-27] MEDS ORDERED: ACETAMINOPHEN 325 MG TABLET PO PRN (08:12)
[2017-11-27] MEDS: INSULIN REGULAR 100 UNIT/ML SUBCUT SCH ×4 (08:42→20:36)
[2017-11-27] MEDS: FUROSEMIDE 40 MG/4 ML VIAL IV SCH ×2 (08:53→16:48)
[2017-11-27] MEDS: PANTOPRAZOLE 40 MG TABLET PO SCH (08:53)
[2017-11-27] MEDS: CARVEDILOL 25 MG TABLET PO SCH ×2 (08:53→20:36)
[2017-11-27] MEDS: ASPIRIN EC 81 MG TABLET PO SCH (08:53)
[2017-11-27] MEDS: DOCUSATE SODIUM 100 MG CAPSULE PO SCH ×2 (08:54→20:36)
[2017-11-27] MEDS: SODIUM CHLORIDE 0.9% 1,000 ML IV SCH (08:59)
[2017-11-27] MEDS ORDERED: FUROSEMIDE 20 MG TABLET PO SCH (09:00)
[2017-11-27 11:04] LABS: Troponin I Only 0.149 NG/ML (0.00-0.045)
[2017-11-27] MEDS: NITROGLYCERIN 2% OINT 1 INCH/GM PACK TOP SCH ×2 (12:23→17:27)
[2017-11-27] MEDS: VALSARTAN 160 MG TABLET PO SCH (17:27)
[2017-11-27] MEDS: FUROSEMIDE 80 MG TABLET PO SCH (17:27)
[2017-11-28] MEDS: NITROGLYCERIN 2% OINT 1 INCH/GM PACK TOP SCH ×2 (00:53→06:26)
[2017-11-28] MEDS: HEPARIN DRIP 25,000 UNITS/500 ML PREMIX IV SCH ×4 (03:58→23:41)
[2017-11-28 05:26] LABS: Basophils % 0.3 % (0.0-0.8); Eosinophils # 0.2 10*3/uL (0.0-0.87); Eosinophils % 2.2 % (0.00-10.9); Hemoglobin 9.5 GM/DL (14.0-18.0); Immature Granulocytes % 0.5 %; Immature Granulocytes Absolute 0.04 #; Lymphocytes # 1.1 10*3/uL (1.4-4.0); Lymphocytes % 12.6 % (21.2-54.2); Mean Corpuscular HGB Conc 32.8 GM/DL (32-36); Mean Corpuscular Hemoglobin 25 PG (27-34); Mean Corpuscular Volume 74.9 FL (87-102); Mean Platelet Volume 11.1 FL (9.6-12.0); Monocytes # 0.6 10*3/uL (0.11-0.8); Monocytes % 7.3 % (1.7-12.7); Neutrophils # 6.7 10*3/uL (1.4-7.4); Neutrophils % 77.1 % (38.7-73.9); Platelet Count 256 T/CUMM (130-400); Red Blood Count 3.87 MC/CUMM (3.8-5.5); White Blood Count 8.7 T/CUMM (4-12)
[2017-11-28 06:27] LABS: Calcium 7.2 MG/DL (8.5-10.1); Potassium 3.3 MMOL/L (3.5-5.1)
[2017-11-28] MEDS: niCARdipine INJ 25 MG in SODIUM CHLORIDE 0.9% 240 ML IV SCH (06:27)
[2017-11-28 06:48] LABS: Albumin 2.2 G/DL (3.4-5.0); Bilirubin,Total 1.2 MG/DL (0.2-1.0); Calcium 7.4 MG/DL (8.5-10.1); Potassium 3.3 MMOL/L (3.5-5.1); Risk Ratio 2.12; Total Protein 5.9 G/DL (6.4-8.3); VLDL CHOLESTEROL 13.4 MG/DL
[2017-11-28] MEDS: INSULIN REGULAR 100 UNIT/ML SUBCUT SCH ×4 (07:23→20:15)
[2017-11-28 07:54] LABS: Total Protein (Chem) 6.4 G/DL (6.4-8.3)
[2017-11-28] MEDS: FUROSEMIDE 80 MG TABLET PO SCH ×2 (08:04→16:47)
[2017-11-28] MEDS: CARVEDILOL 25 MG TABLET PO SCH ×2 (08:04→20:15)
[2017-11-28] MEDS: SODIUM CHLORIDE 0.9% 1,000 ML IV SCH (08:04)
[2017-11-28] MEDS: ASPIRIN EC 81 MG TABLET PO SCH (08:04)
[2017-11-28] MEDS: PANTOPRAZOLE 40 MG TABLET PO SCH (08:05)
[2017-11-28] MEDS: DOCUSATE SODIUM 100 MG CAPSULE PO SCH ×2 (08:05→20:14)
[2017-11-28] MEDS: VALSARTAN 160 MG TABLET PO SCH (08:05)
[2017-11-28 09:32] LABS: Immuno Free Light Chain Kappa 9.03 MG/DL (0.33-1.94); Immuno Free Light Chain Lambda 5.9 MG/DL (0.57-2.63); Immuno Free Light Chain Ratio 1.53 MG/DL (0.26-1.65)
[2017-11-28] MEDS ORDERED: POTASSIUM CHLORIDE 20 MEQ TABLET PO ONE ×2 (09:32→09:35)
[2017-11-28 10:52] LABS: Albumin (SPE) Rel % 47.5 %; Alpha 1 (SPE) 0.3 G/DL (0.1-0.4); Alpha 1 (SPE) Rel % 4.7 %
[2017-11-28 10:53] LABS: Alpha 2 (SPE) Rel % 14.2 %; Beta (SPE) 0.7 G/DL (0.5-1.1); Beta (SPE) Rel % 11.1 %; Gamma (SPE) 1.4 G/DL (0.7-1.7); Gamma (SPE) Rel % 22.5 %
[2017-11-28 11:01] LABS: Albumin (UPER) 37.7 MG/DL; Albumin (UPER) Rel% 72.5 %; Alpha 1 (UPER) 2.9 MG/DL; Alpha 1 (UPER) Rel% 5.6 %; Alpha 2 (UPER) 1.8 MG/DL; Alpha 2 (UPER) Rel % 3.4 %; Beta (UPER) 2.8 MG/DL; Beta (UPER) Rel % 5.4 %; Gamma (UPER) 6.8 MG/DL; Gamma (UPER) Rel % 13.1 %
[2017-11-28 12:37] LABS: INR 1.2; PT Patient Result 12.8 SECS
[2017-11-28] MEDS: POTASSIUM CHLORIDE 20 MEQ TABLET PO PRN ×3 (16:47→20:14)
[2017-11-28] MEDS ORDERED: WARFARIN 5 MG TABLET PO ONE (18:00)
[2017-11-28] MEDS ORDERED: WARFARIN 5 MG TABLET PO SCH (18:00)
[2017-11-29 05:09] LABS: Basophils # 0.1 10*3/uL (0.0-0.2); Basophils % 0.7 % (0.0-0.8); Eosinophils # 0.3 10*3/uL (0.0-0.87); Eosinophils % 3.8 % (0.00-10.9); Hematocrit 30.6 VOL% (42.0-52.0); Hemoglobin 9.6 GM/DL (14.0-18.0); Immature Granulocytes % 0.3 %; Immature Granulocytes Absolute 0.02 #; Lymphocytes # 1.5 10*3/uL (1.4-4.0); Lymphocytes % 19.9 % (21.2-54.2); Mean Corpuscular HGB Conc 31.4 GM/DL (32-36); Mean Corpuscular Hemoglobin 24 PG (27-34); Mean Corpuscular Volume 76.9 FL (87-102); Mean Platelet Volume 10.9 FL (9.6-12.0); Monocytes # 0.6 10*3/uL (0.11-0.8); Monocytes % 7.6 % (1.7-12.7); Neutrophils # 5.1 10*3/uL (1.4-7.4); Neutrophils % 67.7 % (38.7-73.9); Platelet Count 276 T/CUMM (130-400); Red Blood Count 3.98 MC/CUMM (3.8-5.5); Red Cell Distribution Width 15.3 % (9.3-17.3); White Blood Count 7.6 T/CUMM (4-12)
[2017-11-29 05:40] LABS: INR 1.2; PT Patient Result 12.2 SECS
[2017-11-29 05:44] LABS: Albumin 2.3 G/DL (3.4-5.0); Bilirubin,Direct 0.39 MG/DL (0.0-0.20); Bilirubin,Indirect 0.7 MG/DL (0.0-1.0); Bilirubin,Total 1.1 MG/DL (0.2-1.0); Calcium 7.6 MG/DL (8.5-10.1); Osmolality,Calculated 301.1 MOS/KG (273-304); Potassium 3.6 MMOL/L (3.5-5.1); Total Protein 6.3 G/DL (6.4-8.3)
[2017-11-29] MEDS: niCARdipine INJ 25 MG in SODIUM CHLORIDE 0.9% 240 ML IV SCH (06:17)
[2017-11-29] MEDS: INSULIN REGULAR 100 UNIT/ML SUBCUT SCH ×4 (08:12→21:25)
[2017-11-29] MEDS: FUROSEMIDE 80 MG TABLET PO SCH ×2 (09:18→16:46)
[2017-11-29] MEDS: DOCUSATE SODIUM 100 MG CAPSULE PO SCH ×2 (09:18→21:23)
[2017-11-29] MEDS: CARVEDILOL 25 MG TABLET PO SCH ×2 (09:18→21:23)
[2017-11-29] MEDS: ASPIRIN EC 81 MG TABLET PO SCH (09:18)
[2017-11-29] MEDS: VALSARTAN 160 MG TABLET PO SCH (09:18)
[2017-11-29] MEDS: PANTOPRAZOLE 40 MG TABLET PO SCH (09:18)
[2017-11-29] MEDS: HEPARIN DRIP 25,000 UNITS/500 ML PREMIX IV SCH (10:35)
[2017-11-29] MEDS: cloNIDine 0.1 MG TABLET PO PRN (12:20)
[2017-11-29] MEDS: SODIUM CHLORIDE 0.9% 1,000 ML IV SCH (16:01)
[2017-11-29] MEDS: WARFARIN 5 MG TABLET PO SCH (17:11)
[2017-11-30 05:15] LABS: Basophils # 0.1 10*3/uL (0.0-0.2); Basophils % 0.8 % (0.0-0.8); Eosinophils # 0.2 10*3/uL (0.0-0.87); Eosinophils % 3.3 % (0.00-10.9); Hematocrit 29.5 VOL% (42.0-52.0); Hemoglobin 9.1 GM/DL (14.0-18.0); Immature Granulocytes % 0.5 %; Immature Granulocytes Absolute 0.03 #; Lymphocytes # 1.4 10*3/uL (1.4-4.0); Lymphocytes % 22.4 % (21.2-54.2); Mean Corpuscular HGB Conc 30.8 GM/DL (32-36); Mean Corpuscular Hemoglobin 24 PG (27-34); Mean Corpuscular Volume 76.8 FL (87-102); Mean Platelet Volume 11.5 FL (9.6-12.0); Monocytes # 0.6 10*3/uL (0.11-0.8); Monocytes % 9.6 % (1.7-12.7); Neutrophils % 63.4 % (38.7-73.9); Platelet Count 291 T/CUMM (130-400); Red Blood Count 3.84 MC/CUMM (3.8-5.5); Red Cell Distribution Width 15.2 % (9.3-17.3); White Blood Count 6.3 T/CUMM (4-12)
[2017-11-30 05:28] LABS: INR 1.2; PT Patient Result 12.5 SECS
[2017-11-30 05:50] LABS: Calcium 7.9 MG/DL (8.5-10.1); Osmolality,Calculated 299.3 MOS/KG (273-304); Potassium 3.8 MMOL/L (3.5-5.1)
[2017-11-30] MEDS: HEPARIN DRIP 25,000 UNITS/500 ML PREMIX IV SCH ×2 (06:20→15:13)
[2017-11-30] MEDS: niCARdipine INJ 25 MG in SODIUM CHLORIDE 0.9% 240 ML IV SCH (08:29)
[2017-11-30] MEDS: INSULIN REGULAR 100 UNIT/ML SUBCUT SCH ×4 (08:32→21:33)
[2017-11-30] MEDS: ASPIRIN EC 81 MG TABLET PO SCH (09:53)
[2017-11-30] MEDS: PANTOPRAZOLE 40 MG TABLET PO SCH (09:53)
[2017-11-30] MEDS: CARVEDILOL 25 MG TABLET PO SCH ×2 (09:53→20:35)
[2017-11-30] MEDS: VALSARTAN 160 MG TABLET PO SCH (09:54)
[2017-11-30] MEDS: FUROSEMIDE 80 MG TABLET PO SCH ×2 (09:54→15:50)
[2017-11-30] MEDS: DOCUSATE SODIUM 100 MG CAPSULE PO SCH ×2 (09:54→20:35)
[2017-11-30] MEDS ORDERED: WARFARIN 5 MG TABLET PO ONE (10:02)
[2017-11-30] MEDS: cloNIDine 0.1 MG TABLET PO PRN ×2 (11:07→17:34)
[2017-11-30] MEDS: SODIUM CHLORIDE 0.9% 1,000 ML IV SCH (17:00)
[2017-11-30] MEDS: WARFARIN 5 MG TABLET PO SCH (17:34)
[2017-11-30] MEDS ORDERED: WARFARIN 4 MG TABLET PO SCH (19:42)
[2017-12-01] MEDS: cloNIDine 0.1 MG TABLET PO PRN ×5 (00:52→14:11)
[2017-12-01 03:04] LABS: Basophils % 0.5 % (0.0-0.8); Eosinophils # 0.2 10*3/uL (0.0-0.87); Eosinophils % 2.8 % (0.00-10.9); Hemoglobin 8.8 GM/DL (14.0-18.0); Immature Granulocytes % 0.2 %; Immature Granulocytes Absolute 0.01 #; Lymphocytes # 1.3 10*3/uL (1.4-4.0); Mean Corpuscular HGB Conc 32.6 GM/DL (32-36); Mean Corpuscular Hemoglobin 24 PG (27-34); Mean Corpuscular Volume 74.4 FL (87-102); Mean Platelet Volume 11.4 FL (9.6-12.0); Monocytes # 0.5 10*3/uL (0.11-0.8); Monocytes % 8.3 % (1.7-12.7); Neutrophils % 66.2 % (38.7-73.9); Platelet Count 283 T/CUMM (130-400); Red Blood Count 3.63 MC/CUMM (3.8-5.5); Red Cell Distribution Width 15.1 % (9.3-17.3)
[2017-12-01 03:13] LABS: INR 1.4; PT Patient Result 14.7 SECS
[2017-12-01 04:18] LABS: Osmolality,Calculated 300.3 MOS/KG (273-304); Potassium 3.8 MMOL/L (3.5-5.1)
[2017-12-01] MEDS: HEPARIN DRIP 25,000 UNITS/500 ML PREMIX IV SCH ×3 (06:27→21:11)
[2017-12-01] MEDS: niCARdipine INJ 25 MG in SODIUM CHLORIDE 0.9% 240 ML IV SCH (06:27)
[2017-12-01] MEDS: ASPIRIN EC 81 MG TABLET PO SCH (08:55)
[2017-12-01] MEDS: DOCUSATE SODIUM 100 MG CAPSULE PO SCH ×2 (08:55→21:12)
[2017-12-01] MEDS: CARVEDILOL 25 MG TABLET PO SCH ×2 (08:55→21:12)
[2017-12-01] MEDS: PANTOPRAZOLE 40 MG TABLET PO SCH (08:56)
[2017-12-01] MEDS: FUROSEMIDE 80 MG TABLET PO SCH ×2 (08:56→15:04)
[2017-12-01] MEDS: VALSARTAN 160 MG TABLET PO SCH (08:58)
[2017-12-01] MEDS ORDERED: amLODIPine 10 MG TABLET PO SCH (09:00)
[2017-12-01] MEDS ORDERED: amLODIPine 5 MG TABLET PO SCH (09:00)
[2017-12-01 09:04] LABS: Albumin 2.4 G/DL (3.4-5.0); Calcium 7.8 MG/DL (8.5-10.1); Osmolality,Calculated 302.1 MOS/KG (273-304); Potassium 3.9 MMOL/L (3.5-5.1)
[2017-12-01] MEDS: INSULIN REGULAR 100 UNIT/ML SUBCUT SCH ×3 (09:39→16:11)
[2017-12-01] MEDS ORDERED: EPOETIN ALFA 10,000 UNIT/1 ML VIAL SUBCUT ONE (10:30)
[2017-12-01] MEDS: WARFARIN 7.5 MG TABLET PO SCH (17:05)
[2017-12-01] MEDS: SODIUM CHLORIDE 0.9% 1,000 ML IV SCH (21:17)
[2017-12-02] MEDS: cloNIDine 0.1 MG TABLET PO PRN ×2 (00:04→21:10)
[2017-12-02] MEDS: INSULIN REGULAR 100 UNIT/ML SUBCUT SCH ×5 (00:52→21:10)
[2017-12-02 04:41] LABS: Basophils % 0.7 % (0.0-0.8); Eosinophils # 0.3 10*3/uL (0.0-0.87); Eosinophils % 4.7 % (0.00-10.9); Hematocrit 27.9 VOL% (42.0-52.0); Hemoglobin 9.3 GM/DL (14.0-18.0); Immature Granulocytes % 0.4 %; Immature Granulocytes Absolute 0.02 #; Lymphocytes # 1.3 10*3/uL (1.4-4.0); Lymphocytes % 23.8 % (21.2-54.2); Mean Corpuscular HGB Conc 33.3 GM/DL (32-36); Mean Corpuscular Hemoglobin 25 PG (27-34); Mean Corpuscular Volume 73.8 FL (87-102); Mean Platelet Volume 11.4 FL (9.6-12.0); Monocytes # 0.5 10*3/uL (0.11-0.8); Monocytes % 8.7 % (1.7-12.7); Neutrophils # 3.4 10*3/uL (1.4-7.4); Neutrophils % 61.7 % (38.7-73.9); Platelet Count 301 T/CUMM (130-400); Red Blood Count 3.78 MC/CUMM (3.8-5.5); Red Cell Distribution Width 15.1 % (9.3-17.3); White Blood Count 5.5 T/CUMM (4-12)
[2017-12-02 04:53] LABS: INR 1.8; PT Patient Result 18.2 SECS
[2017-12-02 05:42] LABS: Albumin 2.5 G/DL (3.4-5.0); Calcium 8.4 MG/DL (8.5-10.1); Osmolality,Calculated 298.4 MOS/KG (273-304); Potassium 3.9 MMOL/L (3.5-5.1)
[2017-12-02] MEDS: niCARdipine INJ 25 MG in SODIUM CHLORIDE 0.9% 240 ML IV SCH (06:57)
[2017-12-02] MEDS: HEPARIN DRIP 25,000 UNITS/500 ML PREMIX IV SCH ×2 (08:22→18:59)
[2017-12-02] MEDS: FUROSEMIDE 80 MG TABLET PO SCH ×2 (08:24→18:01)
[2017-12-02] MEDS: ASPIRIN EC 81 MG TABLET PO SCH (08:24)
[2017-12-02] MEDS: DOCUSATE SODIUM 100 MG CAPSULE PO SCH ×2 (08:24→21:10)
[2017-12-02] MEDS: VALSARTAN 160 MG TABLET PO SCH (08:24)
[2017-12-02] MEDS: CARVEDILOL 25 MG TABLET PO SCH ×2 (08:24→21:10)
[2017-12-02] MEDS: PANTOPRAZOLE 40 MG TABLET PO SCH (08:24)
[2017-12-02] MEDS: SODIUM CHLORIDE 0.9% 1,000 ML IV SCH (18:04)
[2017-12-02] MEDS: WARFARIN 7.5 MG TABLET PO SCH (18:08)
[2017-12-03] MEDS: cloNIDine 0.1 MG TABLET PO PRN ×2 (00:20→12:57)
[2017-12-03 04:39] LABS: Basophils % 0.5 % (0.0-0.8); Eosinophils # 0.3 10*3/uL (0.0-0.87); Eosinophils % 5.1 % (0.00-10.9); Hematocrit 28.2 VOL% (42.0-52.0); Hemoglobin 9.2 GM/DL (14.0-18.0); Immature Granulocytes % 0.4 %; Immature Granulocytes Absolute 0.02 #; Lymphocytes # 1.2 10*3/uL (1.4-4.0); Lymphocytes % 21.7 % (21.2-54.2); Mean Corpuscular HGB Conc 32.6 GM/DL (32-36); Mean Corpuscular Hemoglobin 24 PG (27-34); Mean Corpuscular Volume 73.8 FL (87-102); Mean Platelet Volume 10.7 FL (9.6-12.0); Monocytes # 0.6 10*3/uL (0.11-0.8); Monocytes % 10.5 % (1.7-12.7); NRBC # 0.05 10*3/uL; Neutrophils # 3.4 10*3/uL (1.4-7.4); Neutrophils % 61.8 % (38.7-73.9); Platelet Count 274 T/CUMM (130-400); Red Blood Count 3.82 MC/CUMM (3.8-5.5); Red Cell Distribution Width 15.1 % (9.3-17.3); White Blood Count 5.5 T/CUMM (4-12)
[2017-12-03 04:54] LABS: INR 2.7
[2017-12-03 04:55] LABS: PT Patient Result 27.8 SECS
[2017-12-03] MEDS ORDERED: HEPARIN 5,000 UNIT/1 ML VIAL IV PRN (05:02)
[2017-12-03 05:08] LABS: Albumin 2.6 G/DL (3.4-5.0); Calcium 8.6 MG/DL (8.5-10.1); Osmolality,Calculated 296.4 MOS/KG (273-304); Potassium 3.7 MMOL/L (3.5-5.1)
[2017-12-03] MEDS: niCARdipine INJ 25 MG in SODIUM CHLORIDE 0.9% 240 ML IV SCH (06:24)
[2017-12-03] MEDS: HEPARIN DRIP 25,000 UNITS/500 ML PREMIX IV SCH (06:34)
[2017-12-03] MEDS: INSULIN REGULAR 100 UNIT/ML SUBCUT SCH ×3 (09:45→17:06)
[2017-12-03] MEDS: FUROSEMIDE 80 MG TABLET PO SCH ×2 (09:45→17:06)
[2017-12-03] MEDS: VALSARTAN 160 MG TABLET PO SCH (09:46)
[2017-12-03] MEDS: CARVEDILOL 25 MG TABLET PO SCH (09:46)
[2017-12-03] MEDS: PANTOPRAZOLE 40 MG TABLET PO SCH (09:46)
[2017-12-03] MEDS: ASPIRIN EC 81 MG TABLET PO SCH (09:46)
[2017-12-03] MEDS: DOCUSATE SODIUM 100 MG CAPSULE PO SCH (09:46)
[2017-12-03 17:03] VITALS: BP 164/106
[2017-12-03] MEDS: WARFARIN 7.5 MG TABLET PO SCH (17:07)
== END 2017-12-03 18:25 | disposition home or self-care (01) | DRG 299 ==
LOC: N.ED 02:12 → N.EDINP 05:59 → N.CC 06:43 → N.TELES 11-29 15:56
PROVIDERS: ADMIT Family Medicine; ATTEND Family Medicine

== ENCOUNTER 2018-06-02 05:22 | Observation (INO) ==
[2018-06-02] MEDS ORDERED: FLUMAZENIL 0.5 MG/5 ML VIAL IV PRN (05:28)
[2018-06-02 05:46] LABS: Basophils % 0.5 % (0.0-0.8); Eosinophils # 0.2 10*3/uL (0.0-0.87); Eosinophils % 2.8 % (0.00-10.9); Hematocrit 26.6 VOL% (42.0-52.0); Hemoglobin 8.7 GM/DL (14.0-18.0); Immature Granulocytes % 0.5 %; Immature Granulocytes Absolute 0.04 #; Lymphocytes # 1.5 10*3/uL (1.4-4.0); Lymphocytes % 19.9 % (21.2-54.2); Mean Corpuscular HGB Conc 32.7 GM/DL (32-36); Mean Corpuscular Hemoglobin 25 PG (27-34); Mean Corpuscular Volume 75.8 FL (87-102); Mean Platelet Volume 11.6 FL (9.6-12.0); Monocytes # 0.3 10*3/uL (0.11-0.8); Monocytes % 4.1 % (1.7-12.7); Neutrophils # 5.3 10*3/uL (1.4-7.4); Neutrophils % 72.2 % (38.7-73.9); Platelet Count 274 T/CUMM (130-400); Red Blood Count 3.51 MC/CUMM (3.8-5.5); Red Cell Distribution Width 14.6 % (9.3-17.3); White Blood Count 7.4 T/CUMM (4-12)
[2018-06-02 05:53] LABS: ABG Base Excess -3.2 MMOL/L (-2.5-2.5); ABG HCO3 21.7 MMOL/L (20-26); ABG Oxygen Saturation 94.2 % (95-100); ABG PH 7.408 (7.35-7.45); ABG PO2 85.2 MM HG (80-95); ABG TCO2 19.3 MMOL/L (23-27); Allen Test Positive
[2018-06-02 06:08] LABS: Apearance,Urine CLOUDY (Clear); Bilirubin,Urine Negative (Negative); Blood, Urine Moderate mg/dL (Negative); Glucose,Urine (UA) Negative (Negative); Ketones,Urine Negative (Negative); Nitrite,Urine Negative (Negative); Protein,Urine 100 MG/DL; RBC,Urine 5 /HPF (0-4); Squamous Epithelial Cell,Urine Occasional /HPF (0-10); Urine Color Yellow (Yellow); Urine Urobilinogen < 2.0 EU/DL (0.2-1.0); WBC,Urine 16 /HPF (0-6)
[2018-06-02 06:23] LABS: Barbiturates Screen,Urine Negative (Negative); Benzodiazepines Screen,Urine Negative (Negative); Cannabinoid Screen,Urine Negative (Negative); Opiate Screen,Urine Negative (Negative); Phencyclidine Screen,Urine Negative (Negative)
[2018-06-02 08:08] LABS: Alanine Aminotransferase 22 U/L (16-61); Albumin 2.5 G/DL (3.4-5.0); Alkaline Phosphatase 74 U/L (45-117); Aspartate Amino Transferase 17 U/L (0-37); Blood Urea Nitrogen 75 MG/DL (7-18); Calcium 6.7 MG/DL (8.5-10.1); Glucose 257 MG/DL (74-106); Osmolality,Calculated 316.8 MOS/KG (273-304); Potassium 3.2 MMOL/L (3.5-5.1); Sodium 144 MMOL/L (136-145); Total Protein 6.2 G/DL (6.4-8.3)
[2018-06-02] MEDS ORDERED: DEXTROSE 50% 25 GM/50 ML VIAL IV PRN (08:12)
[2018-06-02] MEDS ORDERED: ONDANSETRON 4 MG/2 ML VIAL IV PRN (08:12)
[2018-06-02] MEDS ORDERED: ACETAMINOPHEN 325 MG TABLET PO PRN (08:12)
[2018-06-02] MEDS ORDERED: GLUCAGON 1 MG VIAL IM PRN (08:12)
[2018-06-02] MEDS ORDERED: SODIUM CHLORIDE 0.9% 1,000 ML IV SCH (08:12)
[2018-06-02] MEDS: DOCUSATE SODIUM 100 MG CAPSULE PO SCH ×2 (10:36→20:34)
[2018-06-02] MEDS: POTASSIUM CHLORIDE 20 MEQ TABLET PO SCH ×2 (10:36→20:33)
[2018-06-02] MEDS: PANTOPRAZOLE 40 MG TABLET PO SCH (10:36)
[2018-06-02] MEDS: INSULIN LISPRO 100 UNIT/ML SUBCUT SCH ×3 (12:15→22:31)
[2018-06-02 12:28] LABS: INR 1.1
[2018-06-02 16:20] LABS: Troponin I 0.218 NG/ML (0.00-0.045)
[2018-06-02] MEDS: CARVEDILOL 25 MG TABLET PO SCH (17:24)
[2018-06-02] MEDS: FUROSEMIDE 80 MG TABLET PO SCH (17:24)
[2018-06-02] MEDS: WARFARIN 7.5 MG TABLET PO SCH (17:27)
[2018-06-02] MEDS: cloNIDine 0.1 MG TABLET PO SCH (20:34)
[2018-06-02] MEDS: POTASSIUM CHLORIDE 20 MEQ TABLET PO PRN (22:31)
[2018-06-03] MEDS ORDERED: hydrALAZINE 10 MG TABLET PO PRN
[2018-06-03] MEDS: POTASSIUM CHLORIDE 20 MEQ TABLET PO PRN ×3 (00:14→04:35)
[2018-06-03 06:30] LABS: Basophils % 0.2 % (0.0-0.8); Eosinophils # 0.2 10*3/uL (0.0-0.87); Eosinophils % 1.9 % (0.00-10.9); Hematocrit 31.3 VOL% (42.0-52.0); Hemoglobin 9.7 GM/DL (14.0-18.0); INR 1.2; Immature Granulocytes % 0.4 %; Immature Granulocytes Absolute 0.04 #; Lymphocytes # 1.2 10*3/uL (1.4-4.0); Lymphocytes % 13.3 % (21.2-54.2); Mean Corpuscular Hemoglobin 25 PG (27-34); Monocytes # 0.7 10*3/uL (0.11-0.8); Monocytes % 7.3 % (1.7-12.7); NRBC # 0.03 10*3/uL; Neutrophils # 6.9 10*3/uL (1.4-7.4); Neutrophils % 76.9 % (38.7-73.9); PT Patient Result 12.1 SECS; Platelet Count 248 T/CUMM (130-400); Red Blood Count 3.96 MC/CUMM (3.8-5.5); Red Cell Distribution Width 14.7 % (9.3-17.3)
[2018-06-03 06:56] LABS: CKMB % 4.3 %
[2018-06-03 06:57] LABS: Troponin I 0.935 NG/ML (0.00-0.045)
[2018-06-03 07:01] LABS: Calcium 7.3 MG/DL (8.5-10.1); Potassium 4.1 MMOL/L (3.5-5.1); Thyroid Stimulating Hormone 2.12 uIU/ml (0.358-3.74)
[2018-06-03] MEDS ORDERED: VALSARTAN 160 MG TABLET PO SCH (09:00)
[2018-06-03] MEDS: INSULIN LISPRO 100 UNIT/ML SUBCUT SCH ×4 (10:29→22:02)
[2018-06-03] MEDS: FUROSEMIDE 80 MG TABLET PO SCH ×2 (10:44→17:08)
[2018-06-03] MEDS: DOCUSATE SODIUM 100 MG CAPSULE PO SCH ×2 (10:44→22:21)
[2018-06-03] MEDS: POTASSIUM CHLORIDE 20 MEQ TABLET PO SCH ×2 (10:44→22:21)
[2018-06-03] MEDS: cloNIDine 0.1 MG TABLET PO SCH (10:45)
[2018-06-03] MEDS: ASPIRIN EC 81 MG TABLET PO SCH (10:45)
[2018-06-03] MEDS: CARVEDILOL 25 MG TABLET PO SCH ×2 (10:45→17:08)
[2018-06-03] MEDS: PANTOPRAZOLE 40 MG TABLET PO SCH (10:45)
[2018-06-03] MEDS: WARFARIN 7.5 MG TABLET PO SCH (17:08)
[2018-06-03] MEDS: MAGNESIUM OXIDE 400 MG TABLET PO SCH (22:21)
[2018-06-03] MEDS: hydrALAZINE 25 MG TABLET PO SCH (22:21)
[2018-06-04 05:30] LABS: Basophils % 0.6 % (0.0-0.8); Eosinophils # 0.2 10*3/uL (0.0-0.87); Eosinophils % 2.7 % (0.00-10.9); Hematocrit 28.3 VOL% (42.0-52.0); Hemoglobin 9.1 GM/DL (14.0-18.0); Immature Granulocytes % 0.5 %; Immature Granulocytes Absolute 0.03 #; Lymphocytes # 1.3 10*3/uL (1.4-4.0); Mean Corpuscular HGB Conc 32.2 GM/DL (32-36); Mean Corpuscular Hemoglobin 25 PG (27-34); Mean Corpuscular Volume 76.5 FL (87-102); Mean Platelet Volume 11.9 FL (9.6-12.0); Monocytes # 0.5 10*3/uL (0.11-0.8); Monocytes % 8.2 % (1.7-12.7); NRBC # 0.02 10*3/uL; Neutrophils # 4.5 10*3/uL (1.4-7.4); Platelet Count 232 T/CUMM (130-400); Red Cell Distribution Width 14.9 % (9.3-17.3); White Blood Count 6.6 T/CUMM (4-12)
[2018-06-04 05:35] LABS: INR 1.7; PT Patient Result 17.3 SECS
[2018-06-04 05:47] LABS: Calcium 7.1 MG/DL (8.5-10.1); Osmolality,Calculated 311.8 MOS/KG (273-304); Potassium 3.9 MMOL/L (3.5-5.1)
[2018-06-04] MEDS: INSULIN LISPRO 100 UNIT/ML SUBCUT SCH ×2 (08:45→11:18)
[2018-06-04] MEDS ORDERED: ISOSORBIDE MONONITRATE 30 MG TABLET PO SCH (09:00)
[2018-06-04] MEDS: hydrALAZINE 25 MG TABLET PO SCH (09:13)
[2018-06-04] MEDS: MAGNESIUM OXIDE 400 MG TABLET PO SCH (09:13)
[2018-06-04] MEDS: FUROSEMIDE 80 MG TABLET PO SCH (09:13)
[2018-06-04] MEDS: PANTOPRAZOLE 40 MG TABLET PO SCH (09:14)
[2018-06-04] MEDS: POTASSIUM CHLORIDE 20 MEQ TABLET PO SCH (09:14)
[2018-06-04] MEDS: ASPIRIN EC 81 MG TABLET PO SCH (09:14)
[2018-06-04] MEDS: DOCUSATE SODIUM 100 MG CAPSULE PO SCH (09:15)
[2018-06-04] MEDS: CARVEDILOL 25 MG TABLET PO SCH (09:15)
[2018-06-04 11:23] VITALS: BP 137/75
== END 2018-06-04 14:40 | disposition home or self-care (01) ==
LOC: N.EDINP 05:22 → N.ED 05:22 → N.2E 08:05
PROVIDERS: ADMIT Family Medicine; ATTEND Family Medicine

== ENCOUNTER 2018-07-21 15:43 | Inpatient (IN) ==
[2018-07-21 16:50] LABS: Basophils % 0.1 % (0.0-0.8); Eosinophils % 0.5 % (0.00-10.9); Hemoglobin 8.3 GM/DL (14.0-18.0); Immature Granulocytes % 0.4 %; Immature Granulocytes Absolute 0.03 #; Lymphocytes # 0.7 10*3/uL (1.4-4.0); Mean Corpuscular HGB Conc 30.7 GM/DL (32-36); Mean Corpuscular Hemoglobin 23 PG (27-34); Mean Corpuscular Volume 75.6 FL (87-102); Mean Platelet Volume 11.5 FL (9.6-12.0); Monocytes # 0.5 10*3/uL (0.11-0.8); Monocytes % 5.4 % (1.7-12.7); Neutrophils # 7.1 10*3/uL (1.4-7.4); Neutrophils % 85.6 % (38.7-73.9); Platelet Count 207 T/CUMM (130-400); Red Blood Count 3.57 MC/CUMM (3.8-5.5); Red Cell Distribution Width 15.2 % (9.3-17.3); White Blood Count 8.3 T/CUMM (4-12)
[2018-07-21 17:09] LABS: Albumin 3.3 G/DL (3.4-5.0); Bilirubin,Total 0.4 MG/DL (0.2-1.0); Calcium 7.5 MG/DL (8.5-10.1); Osmolality,Calculated 295.5 MOS/KG (273-304); Potassium 3.9 MMOL/L (3.5-5.1); Total Protein 7.9 G/DL (6.4-8.3)
[2018-07-21] MEDS ORDERED: PHYTONADIONE 10 MG/1 ML AMP SUBCUT STA (17:50)
[2018-07-21 18:06] LABS: PT Patient Result 81.7 SECS
[2018-07-21 18:07] LABS: INR 8.4
[2018-07-21] MEDS ORDERED: ONDANSETRON 4 MG/2 ML VIAL IV PRN (20:13)
[2018-07-21] MEDS ORDERED: HYDROmorphone 2 MG/1 ML VIAL IV PRN (20:13)
[2018-07-21 22:02] LABS: Hematocrit 23.1 VOL% (42.0-52.0); Hemoglobin 7.2 GM/DL (14.0-18.0)
[2018-07-21] MEDS ORDERED: SODIUM CHLORIDE 0.9% 1,000 ML IV PRN (23:50)
[2018-07-22] MEDS: HYDROmorphone 2 MG/1 ML VIAL IV PRN ×5 (00:07→19:14)
[2018-07-22] MEDS ORDERED: PNEUMOCOCCAL VACCINE (23 VALENT) 0.5 ML VIAL IM ONE (04:24)
[2018-07-22 08:41] LABS: Basophils % 0.1 % (0.0-0.8); Hematocrit 19.1 VOL% (42.0-52.0); Immature Granulocytes % 0.5 %; Immature Granulocytes Absolute 0.05 #; Lymphocytes # 0.8 10*3/uL (1.4-4.0); Mean Corpuscular HGB Conc 31.9 GM/DL (32-36); Mean Corpuscular Hemoglobin 25 PG (27-34); Mean Corpuscular Volume 77.6 FL (87-102); Monocytes % 9.5 % (1.7-12.7); Neutrophils % 82.9 % (38.7-73.9); Platelet Count 215 T/CUMM (130-400); Red Blood Count 2.46 MC/CUMM (3.8-5.5); Red Cell Distribution Width 17.2 % (9.3-17.3); White Blood Count 10.9 T/CUMM (4-12)
[2018-07-22 08:52] LABS: INR 2.8
[2018-07-22 08:59] LABS: Hemoglobin 6.1 GM/DL (14.0-18.0)
[2018-07-22] MEDS ORDERED: PANTOPRAZOLE 40 MG TABLET PO SCH (09:00)
[2018-07-22 09:13] LABS: PT Patient Result 28.8 SECS
[2018-07-22 09:16] LABS: Calcium 7.7 MG/DL (8.5-10.1); Osmolality,Calculated 301.5 MOS/KG (273-304); Potassium 4.7 MMOL/L (3.5-5.1)
[2018-07-22 09:24] LABS: Amorphous Crystals,Urine Occasional /HPF (Few); Apearance,Urine CLOUDY (Clear); Bilirubin,Urine Negative (Negative); Blood, Urine Large mg/dL (Negative); Glucose,Urine (UA) Negative (Negative); Ketones,Urine Negative (Negative); Nitrite,Urine Negative (Negative); Protein,Urine 100 MG/DL; RBC,Urine 980 /HPF (0-4); Urine Color Red (Yellow); Urine Specific Gravity 1.013 (1.001-1.035); Urine Urobilinogen < 2.0 EU/DL (0.2-1.0); WBC,Urine 6 /HPF (0-6)
[2018-07-22] MEDS ORDERED: SODIUM CHLORIDE 0.9% 1,000 ML IV PRN ×3 (09:35→23:31)
[2018-07-22] MEDS ORDERED: PHYTONADIONE 10 MG/1 ML AMP IV ONE (09:58)
[2018-07-22] MEDS ORDERED: LABETALOL 20 MG/4 ML SYRINGE IV ONE (10:37)
[2018-07-22] MEDS ORDERED: FUROSEMIDE 20 MG/2 ML VIAL ONE (10:43)
[2018-07-22] MEDS ORDERED: DEXTROSE 50% 25 GM/50 ML VIAL IV PRN (10:46)
[2018-07-22] MEDS ORDERED: GLUCAGON 1 MG VIAL IM PRN (10:46)
[2018-07-22] MEDS ORDERED: FUROSEMIDE 100 MG/10 ML VIAL IV ONE (11:00)
[2018-07-22] MEDS: INSULIN LISPRO 100 UNIT/ML SUBCUT SCH ×2 (12:46→18:25)
[2018-07-22] MEDS: hydrALAZINE 20 MG/1 ML VIAL IV PRN (14:01)
[2018-07-22] MEDS: FUROSEMIDE 40 MG/4 ML VIAL IV SCH (16:37)
[2018-07-22] MEDS: METOPROLOL TARTRATE 5 MG/5 ML VIAL IV PRN (16:37)
[2018-07-22] MEDS ORDERED: ISOSORBIDE MONONITRATE 60 MG TABLET PO SCH (17:00)
[2018-07-22 18:02] LABS: Hematocrit 20.9 VOL% (42.0-52.0); Hemoglobin 6.8 GM/DL (14.0-18.0)
[2018-07-22 18:17] LABS: Calcium 7.5 MG/DL (8.5-10.1); Osmolality,Calculated 300.7 MOS/KG (273-304); Potassium 4.8 MMOL/L (3.5-5.1)
[2018-07-22] MEDS ORDERED: cloNIDine 0.1 MG TABLET PO ONE (20:09)
[2018-07-22] MEDS: CARVEDILOL 25 MG TABLET PO SCH (21:48)
[2018-07-23] MEDS ORDERED: SODIUM CHLORIDE 0.9% 1,000 ML IV PRN ×2 (00:06→00:13)
[2018-07-23] MEDS ORDERED: CALCIUM GLUCONATE 1,000 MG in SODIUM CHLORIDE 0.9% 100 ML IV ONE (00:12)
[2018-07-23] MEDS ORDERED: CALCIUM GLUCONATE 1,000 MG/10 ML VIAL IV ONE (00:14)
[2018-07-23] MEDS ORDERED: PROPOFOL 1,000 MG/100 ML BOTTLE IV ONE (00:20)
[2018-07-23] MEDS ORDERED: VECURONIUM 10 MG VIAL IV ONE (00:24)
[2018-07-23] MEDS: PROPOFOL 1,000 MG/100 ML BOTTLE IV SCH ×6 (01:00→23:58)
[2018-07-23] MEDS ORDERED: ETOMIDATE 40 MG/20 ML VIAL IV ONE (01:06)
[2018-07-23] MEDS ORDERED: ROCURONIUM 100 MG/10 ML VIAL IV ONE ×2 (01:06→19:52)
[2018-07-23 01:19] LABS: ABG Base Excess -6.9 MMOL/L (-2.5-2.5); ABG HCO3 18.8 MMOL/L (20-26); ABG Oxygen Saturation 99.8 % (95-100); ABG PCO2 45.8 MM HG (35-48); ABG PH 7.252 (7.35-7.45); ABG TCO2 18.8 MMOL/L (23-27)
[2018-07-23 03:11] LABS: ABG Base Excess -4.7 MMOL/L (-2.5-2.5); ABG HCO3 20.5 MMOL/L (20-26); ABG Oxygen Saturation 97.5 % (95-100); ABG PCO2 40.7 MM HG (35-48); ABG PH 7.321 (7.35-7.45); ABG TCO2 19.5 MMOL/L (23-27)
[2018-07-23] MEDS: fentaNYL INJ 1,250 MCG in SODIUM CHLORIDE 0.9% 225 ML IV PRN ×2 (03:15→16:09)
[2018-07-23] MEDS: INSULIN LISPRO 100 UNIT/ML SUBCUT SCH ×4 (03:16→20:30)
[2018-07-23] MEDS: hydrALAZINE 25 MG TABLET PO SCH ×3 (03:17→23:59)
[2018-07-23 03:23] LABS: Basophils % 0.1 % (0.0-0.8); Hematocrit 25.7 VOL% (42.0-52.0); Hemoglobin 8.6 GM/DL (14.0-18.0); Immature Granulocytes % 0.5 %; Immature Granulocytes Absolute 0.06 #; Lymphocytes # 1.1 10*3/uL (1.4-4.0); Lymphocytes % 8.4 % (21.2-54.2); Mean Corpuscular HGB Conc 33.5 GM/DL (32-36); Mean Corpuscular Hemoglobin 28 PG (27-34); Mean Corpuscular Volume 82.4 FL (87-102); Mean Platelet Volume 11.5 FL (9.6-12.0); Monocytes # 1.1 10*3/uL (0.11-0.8); Monocytes % 8.5 % (1.7-12.7); Neutrophils # 10.3 10*3/uL (1.4-7.4); Neutrophils % 82.5 % (38.7-73.9); Platelet Count 126 T/CUMM (130-400); Red Blood Count 3.12 MC/CUMM (3.8-5.5); Red Cell Distribution Width 16.3 % (9.3-17.3); White Blood Count 12.5 T/CUMM (4-12)
[2018-07-23 03:31] LABS: INR 1.1; PT Patient Result 11.6 SECS; Partial Thromboplastin Time 28.7 SECS (0-40)
[2018-07-23 03:36] LABS: Calcium 6.6 MG/DL (8.5-10.1); Osmolality,Calculated 302.5 MOS/KG (273-304); Potassium 5.7 MMOL/L (3.5-5.1)
[2018-07-23 04:35] LABS: Hepatitis A Ab IgM Quant 0.09 Index; Hepatitis A Ab IgM Result Negative (Negative); Hepatitis B Core IgM Quant 0.16 Index; Hepatitis B Core IgM Result Negative (Negative); Hepatitis B Surface Ag Quant < 0.10 Index; Hepatitis B Surface Ag Result Negative (Negative); Hepatitis C Virus Ab Result Negative (Negative)
[2018-07-23 07:59] LABS: Hematocrit 25.6 VOL% (42.0-52.0); Hemoglobin 8.4 GM/DL (14.0-18.0)
[2018-07-23] MEDS ORDERED: ISOSORBIDE MONONITRATE 30 MG TABLET PO SCH (09:00)
[2018-07-23] MEDS: CARVEDILOL 25 MG TABLET PO SCH ×2 (10:00→23:59)
[2018-07-23] MEDS: AMIODARONE 200 MG TABLET PO SCH ×2 (10:00→23:59)
[2018-07-23] MEDS: FUROSEMIDE 40 MG/4 ML VIAL IV SCH ×2 (10:00→15:59)
[2018-07-23] MEDS: ISOSORBIDE MONONITRATE 30 MG TABLET PO SCH (10:00)
[2018-07-23] MEDS: PANTOPRAZOLE 40 MG VIAL IV SCH (10:52)
[2018-07-23] MEDS ORDERED: MIDAZOLAM 2 MG/2 ML VIAL IV ONE (12:00)
[2018-07-23] MEDS ORDERED: fentaNYL 100 MCG/2 ML VIAL IV ONE (12:00)
[2018-07-23] MEDS ORDERED: ceFAZolin 1,000 MG in SYRINGE 1 EACH IV ONE (12:00)
[2018-07-23 15:16] LABS: Hematocrit 25.3 VOL% (42.0-52.0); Hemoglobin 8.5 GM/DL (14.0-18.0)
[2018-07-23 17:35] LABS: Hematocrit 24.5 VOL% (42.0-52.0); Hemoglobin 8.3 GM/DL (14.0-18.0)
[2018-07-23] MEDS ORDERED: HEPARIN 5,000 UNIT/1 ML VIAL ONE (17:51)
[2018-07-23] MEDS ORDERED: HEPARIN 10,000 UNIT/10 ML VIAL IV SCH (19:00)
[2018-07-23] MEDS ORDERED: PHENYLEPHRINE 10 MG/1 ML VIAL IV ONE (19:52)
[2018-07-23] MEDS ORDERED: SEVOFLURANE 1 UNIT/15 MINUTE INH ONE (19:52)
[2018-07-23] MEDS ORDERED: fentaNYL 100 MCG/2 ML VIAL ONE (19:52)
[2018-07-23] MEDS ORDERED: PHENYLEPHRINE 1 MG/10 ML SYRINGE IV ONE (19:52)
[2018-07-23] MEDS ORDERED: MIDAZOLAM 2 MG/2 ML VIAL ONE (19:52)
[2018-07-23] MEDS ORDERED: ALBUMIN 25% 25 GM in PREMIX 1 EACH IV ONE (22:00)
[2018-07-24 00:37] LABS: Hematocrit 23.9 VOL% (42.0-52.0); Hemoglobin 8.1 GM/DL (14.0-18.0)
[2018-07-24] MEDS: fentaNYL INJ 1,250 MCG in SODIUM CHLORIDE 0.9% 225 ML IV PRN ×3 (01:04→23:20)
[2018-07-24] MEDS: INSULIN LISPRO 100 UNIT/ML SUBCUT SCH ×4 (01:04→18:33)
[2018-07-24] MEDS: PROPOFOL 1,000 MG/100 ML BOTTLE IV SCH ×5 (03:54→20:59)
[2018-07-24 05:14] LABS: Basophils % 0.1 % (0.0-0.8); Eosinophils % 0.2 % (0.00-10.9); Hematocrit 23.3 VOL% (42.0-52.0); Hemoglobin 7.7 GM/DL (14.0-18.0); Immature Granulocytes % 0.4 %; Immature Granulocytes Absolute 0.06 #; Mean Corpuscular Hemoglobin 27 PG (27-34); Mean Platelet Volume 11.3 FL (9.6-12.0); Monocytes # 1.2 10*3/uL (0.11-0.8); Monocytes % 8.5 % (1.7-12.7); Neutrophils # 11.4 10*3/uL (1.4-7.4); Neutrophils % 83.8 % (38.7-73.9); Platelet Count 127 T/CUMM (130-400); Red Blood Count 2.84 MC/CUMM (3.8-5.5); Red Cell Distribution Width 17.3 % (9.3-17.3); White Blood Count 13.6 T/CUMM (4-12)
[2018-07-24 05:39] LABS: ABG Base Excess -4.7 MMOL/L (-2.5-2.5); ABG HCO3 20.5 MMOL/L (20-26); ABG PCO2 36.3 MM HG (35-48); ABG PH 7.355 (7.35-7.45); ABG TCO2 19.1 MMOL/L (23-27)
[2018-07-24 05:53] LABS: Osmolality,Calculated 295.8 MOS/KG (273-304); Potassium 4.7 MMOL/L (3.5-5.1)
[2018-07-24] MEDS ORDERED: ceFAZolin 1,000 MG in SYRINGE 1 EACH IV ONE (08:00)
[2018-07-24] MEDS ORDERED: HEPARIN/NACL 0.9% 2 UNITS/ML 2,000 ML IV ONE (08:24)
[2018-07-24] MEDS: AMIODARONE 200 MG TABLET PO SCH ×2 (09:00→21:12)
[2018-07-24] MEDS: hydrALAZINE 25 MG TABLET PO SCH ×2 (09:00→21:05)
[2018-07-24] MEDS: CARVEDILOL 25 MG TABLET PO SCH ×2 (09:00→21:12)
[2018-07-24] MEDS: ISOSORBIDE MONONITRATE 30 MG TABLET PO SCH (09:00)
[2018-07-24] MEDS: PANTOPRAZOLE 40 MG VIAL IV SCH (09:16)
[2018-07-24] MEDS: FUROSEMIDE 40 MG/4 ML VIAL IV SCH ×2 (10:46→16:46)
[2018-07-24 16:07] LABS: Hematocrit 25.9 VOL% (42.0-52.0); Hemoglobin 8.5 GM/DL (14.0-18.0)
[2018-07-25] MEDS: PROPOFOL 1,000 MG/100 ML BOTTLE IV SCH ×6 (00:01→22:02)
[2018-07-25] MEDS: INSULIN LISPRO 100 UNIT/ML SUBCUT SCH ×4 (02:04→17:40)
[2018-07-25 05:48] LABS: ABG Base Excess -7.3 MMOL/L (-2.5-2.5); ABG HCO3 18.4 MMOL/L (20-26); ABG PCO2 35.7 MM HG (35-48); ABG PH 7.314 (7.35-7.45); ABG TCO2 16.9 MMOL/L (23-27)
[2018-07-25 05:54] LABS: Basophils % 0.2 % (0.0-0.8); Eosinophils # 0.1 10*3/uL (0.0-0.87); Eosinophils % 0.9 % (0.00-10.9); Hematocrit 25.3 VOL% (42.0-52.0); Hemoglobin 8.4 GM/DL (14.0-18.0); Immature Granulocytes % 0.8 %; Immature Granulocytes Absolute 0.09 #; Lymphocytes # 0.8 10*3/uL (1.4-4.0); Lymphocytes % 7.3 % (21.2-54.2); Mean Corpuscular HGB Conc 33.2 GM/DL (32-36); Mean Corpuscular Hemoglobin 28 PG (27-34); Mean Corpuscular Volume 83.2 FL (87-102); Mean Platelet Volume 11.7 FL (9.6-12.0); Monocytes # 0.9 10*3/uL (0.11-0.8); Monocytes % 8.3 % (1.7-12.7); Neutrophils % 82.5 % (38.7-73.9); Platelet Count 152 T/CUMM (130-400); Red Blood Count 3.04 MC/CUMM (3.8-5.5); Red Cell Distribution Width 17.5 % (9.3-17.3); White Blood Count 10.9 T/CUMM (4-12)
[2018-07-25 06:26] LABS: Calcium 7.4 MG/DL (8.5-10.1); Osmolality,Calculated 301.7 MOS/KG (273-304); Potassium 4.9 MMOL/L (3.5-5.1)
[2018-07-25] MEDS: hydrALAZINE 25 MG TABLET PO SCH ×2 (08:18→22:04)
[2018-07-25] MEDS: AMIODARONE 200 MG TABLET PO SCH ×2 (08:18→20:34)
[2018-07-25] MEDS: ISOSORBIDE MONONITRATE 30 MG TABLET PO SCH (08:18)
[2018-07-25] MEDS: CARVEDILOL 25 MG TABLET PO SCH ×2 (08:18→20:34)
[2018-07-25] MEDS: PANTOPRAZOLE 40 MG VIAL IV SCH (08:45)
[2018-07-25] MEDS: FUROSEMIDE 40 MG/4 ML VIAL IV SCH ×2 (08:45→16:22)
[2018-07-25] MEDS: fentaNYL INJ 1,250 MCG in SODIUM CHLORIDE 0.9% 225 ML IV PRN ×2 (09:16→20:14)
[2018-07-26] MEDS: INSULIN LISPRO 100 UNIT/ML SUBCUT SCH ×4 (00:40→17:17)
[2018-07-26] MEDS: PROPOFOL 1,000 MG/100 ML BOTTLE IV SCH ×7 (00:50→22:32)
[2018-07-26 06:42] LABS: Calcium 7.9 MG/DL (8.5-10.1); Potassium 4.9 MMOL/L (3.5-5.1)
[2018-07-26 07:12] LABS: Hematocrit 24.7 VOL% (42.0-52.0); Hemoglobin 8.2 GM/DL (14.0-18.0)
[2018-07-26] MEDS: fentaNYL INJ 1,250 MCG in SODIUM CHLORIDE 0.9% 225 ML IV PRN ×2 (07:28→18:22)
[2018-07-26 07:54] LABS: ABG Base Excess -4.7 MMOL/L (-2.5-2.5); ABG HCO3 20.5 MMOL/L (20-26); ABG Oxygen Saturation 98.2 % (95-100); ABG PCO2 33.8 MM HG (35-48); ABG PH 7.375 (7.35-7.45); ABG TCO2 18.2 MMOL/L (23-27); Pt O2 Delivery Device Ventilator
[2018-07-26] MEDS: PANTOPRAZOLE 40 MG VIAL IV SCH (09:35)
[2018-07-26] MEDS: hydrALAZINE 25 MG TABLET PO SCH ×2 (09:36→22:19)
[2018-07-26] MEDS: FUROSEMIDE 40 MG/4 ML VIAL IV SCH ×2 (09:36→17:16)
[2018-07-26] MEDS: AMIODARONE 200 MG TABLET PO SCH ×2 (09:36→21:38)
[2018-07-26] MEDS: CARVEDILOL 25 MG TABLET PO SCH ×2 (09:36→21:38)
[2018-07-26] MEDS: ISOSORBIDE MONONITRATE 30 MG TABLET PO SCH (09:37)
[2018-07-26 20:29] LABS: INR 4.9
[2018-07-26 20:30] LABS: PT Patient Result 48.6 SECS; Partial Thromboplastin Time 54.1 SECS (0-40)
[2018-07-27] MEDS: INSULIN LISPRO 100 UNIT/ML SUBCUT SCH ×5 (00:34→23:14)
[2018-07-27] MEDS: PROPOFOL 1,000 MG/100 ML BOTTLE IV SCH ×6 (02:00→20:48)
[2018-07-27 03:48] LABS: ABG Base Excess -6.8 MMOL/L (-2.5-2.5); ABG HCO3 18.8 MMOL/L (20-26); ABG Oxygen Saturation 97.4 % (95-100); ABG PCO2 36.6 MM HG (35-48); ABG PH 7.317 (7.35-7.45); ABG TCO2 17.5 MMOL/L (23-27); Allen Test Positive; Pt O2 Delivery Device Ventilator
[2018-07-27] MEDS: fentaNYL INJ 1,250 MCG in SODIUM CHLORIDE 0.9% 225 ML IV PRN ×3 (05:00→21:35)
[2018-07-27 06:00] LABS: Basophils % 0.2 % (0.0-0.8); Eosinophils # 0.2 10*3/uL (0.0-0.87); Eosinophils % 1.7 % (0.00-10.9); Hematocrit 24.5 VOL% (42.0-52.0); Hemoglobin 8.2 GM/DL (14.0-18.0); Immature Granulocytes % 0.7 %; Immature Granulocytes Absolute 0.07 #; Lymphocytes # 0.4 10*3/uL (1.4-4.0); Lymphocytes % 3.8 % (21.2-54.2); Mean Corpuscular HGB Conc 33.5 GM/DL (32-36); Mean Corpuscular Hemoglobin 28 PG (27-34); Mean Corpuscular Volume 82.8 FL (87-102); Monocytes # 0.9 10*3/uL (0.11-0.8); Neutrophils # 8.3 10*3/uL (1.4-7.4); Neutrophils % 84.6 % (38.7-73.9); Platelet Count 234 T/CUMM (130-400); Red Blood Count 2.96 MC/CUMM (3.8-5.5); Red Cell Distribution Width 17.8 % (9.3-17.3); White Blood Count 9.9 T/CUMM (4-12)
[2018-07-27 06:26] LABS: Calcium 8.2 MG/DL (8.5-10.1); Osmolality,Calculated 298.1 MOS/KG (273-304); Potassium 5.8 MMOL/L (3.5-5.1)
[2018-07-27 06:42] LABS: Hypochromasia 1+; Platelet Estimate Adequate
[2018-07-27 08:20] LABS: PT Patient Result 50.2 SECS
[2018-07-27 09:35] LABS: PT Patient Result 54.2 SECS
[2018-07-27] MEDS: PANTOPRAZOLE 40 MG VIAL IV SCH (09:35)
[2018-07-27] MEDS: FUROSEMIDE 40 MG/4 ML VIAL IV SCH ×2 (09:35→15:12)
[2018-07-27 09:36] LABS: INR 5.5
[2018-07-27] MEDS: ISOSORBIDE MONONITRATE 30 MG TABLET PO SCH (10:00)
[2018-07-27] MEDS: hydrALAZINE 25 MG TABLET PO SCH ×2 (10:00→20:06)
[2018-07-27] MEDS: AMIODARONE 200 MG TABLET PO SCH (10:00)
[2018-07-27] MEDS: CARVEDILOL 25 MG TABLET PO SCH ×2 (10:00→20:07)
[2018-07-27] MEDS ORDERED: SODIUM CHLORIDE 0.9% 1,000 ML IV PRN (10:05)
[2018-07-27] MEDS: hydrALAZINE 20 MG/1 ML VIAL IV PRN (13:31)
[2018-07-27 14:01] LABS: INR 4.5
[2018-07-27 14:02] LABS: PT Patient Result 45.4 SECS
[2018-07-27] MEDS: METOPROLOL TARTRATE 5 MG/5 ML VIAL IV PRN (15:10)
[2018-07-27 16:25] LABS: Basophils % 0.1 % (0.0-0.8); Eosinophils # 0.3 10*3/uL (0.0-0.87); Eosinophils % 3.2 % (0.00-10.9); Hematocrit 26.2 VOL% (42.0-52.0); Hemoglobin 8.7 GM/DL (14.0-18.0); Immature Granulocytes % 1.2 %; Lymphocytes # 0.3 10*3/uL (1.4-4.0); Lymphocytes % 3.2 % (21.2-54.2); Mean Corpuscular HGB Conc 33.2 GM/DL (32-36); Mean Corpuscular Hemoglobin 27 PG (27-34); Mean Corpuscular Volume 81.9 FL (87-102); Mean Platelet Volume 10.5 FL (9.6-12.0); Monocytes # 0.7 10*3/uL (0.11-0.8); Monocytes % 8.9 % (1.7-12.7); Neutrophils # 6.9 10*3/uL (1.4-7.4); Neutrophils % 83.4 % (38.7-73.9); Platelet Count 236 T/CUMM (130-400); Red Cell Distribution Width 17.6 % (9.3-17.3); White Blood Count 8.2 T/CUMM (4-12)
[2018-07-27 16:44] LABS: INR 3.3
[2018-07-27 16:46] LABS: Albumin 2.5 G/DL (3.4-5.0); Bilirubin,Total 1.8 MG/DL (0.2-1.0); Calcium 8.3 MG/DL (8.5-10.1); Potassium 4.1 MMOL/L (3.5-5.1); Total Protein 8.6 G/DL (6.4-8.3)
[2018-07-27 16:48] LABS: PT Patient Result 33.6 SECS
[2018-07-27 17:51] LABS: INR 3.3
[2018-07-27 17:58] LABS: PT Patient Result 33.5 SECS
[2018-07-27 18:04] LABS: Band Neutrophils 1 % (0-10); Eosinophils 4 % (0-10); Giant Platelets Few; Lymphocytes 2 % (20-55); Platelet Estimate Normal; Segmented Neutrophils 85 % (50-85); Total Cells Counted 100
[2018-07-27 18:07] LABS: Hypochromasia 1+; Poikilocytosis Slight
[2018-07-28] MEDS: PROPOFOL 1,000 MG/100 ML BOTTLE IV SCH ×8 (00:06→23:47)
[2018-07-28] MEDS: fentaNYL INJ 1,250 MCG in SODIUM CHLORIDE 0.9% 225 ML IV PRN ×4 (02:50→22:21)
[2018-07-28 03:13] LABS: Basophils % 0.1 % (0.0-0.8); Eosinophils # 0.3 10*3/uL (0.0-0.87); Eosinophils % 4.1 % (0.00-10.9); Hematocrit 23.6 VOL% (42.0-52.0); Hemoglobin 8.1 GM/DL (14.0-18.0); Immature Granulocytes % 0.9 %; Immature Granulocytes Absolute 0.06 #; Lymphocytes # 0.4 10*3/uL (1.4-4.0); Lymphocytes % 5.2 % (21.2-54.2); Mean Corpuscular HGB Conc 34.3 GM/DL (32-36); Mean Corpuscular Hemoglobin 28 PG (27-34); Mean Corpuscular Volume 81.1 FL (87-102); Monocytes # 0.7 10*3/uL (0.11-0.8); Monocytes % 10.3 % (1.7-12.7); Neutrophils # 5.5 10*3/uL (1.4-7.4); Neutrophils % 79.4 % (38.7-73.9); Platelet Count 232 T/CUMM (130-400); Red Blood Count 2.91 MC/CUMM (3.8-5.5); Red Cell Distribution Width 17.6 % (9.3-17.3); White Blood Count 6.9 T/CUMM (4-12)
[2018-07-28 03:18] LABS: INR 2.1; PT Patient Result 21.8 SECS
[2018-07-28 03:19] LABS: Partial Thromboplastin Time 41.7 SECS (0-40)
[2018-07-28 03:32] LABS: Calcium 8.1 MG/DL (8.5-10.1); Potassium 4.5 MMOL/L (3.5-5.1)
[2018-07-28 05:34] LABS: INR 2.1
[2018-07-28] MEDS: INSULIN LISPRO 100 UNIT/ML SUBCUT SCH ×3 (05:34→17:45)
[2018-07-28 05:41] LABS: PT Patient Result 21.4 SECS
[2018-07-28] MEDS ORDERED: SODIUM CHLORIDE 0.9% 1,000 ML IV PRN ×3 (05:57→23:12)
[2018-07-28] MEDS: FUROSEMIDE 40 MG/4 ML VIAL IV SCH ×2 (07:30→16:22)
[2018-07-28] MEDS: PANTOPRAZOLE 40 MG VIAL IV SCH (08:26)
[2018-07-28 08:38] LABS: INR 2.2
[2018-07-28 08:43] LABS: PT Patient Result 22.1 SECS
[2018-07-28 09:09] LABS: Total Protein 8.3 G/DL (6.4-8.3)
[2018-07-28] MEDS ORDERED: MICROFIBRILLAR COLLAGEN POWDER 1 GM CAN TOP ONE (09:14)
[2018-07-28] MEDS ORDERED: ceFAZolin 1,000 MG VIAL ONE (09:39)
[2018-07-28] MEDS ORDERED: CALCIUM CHLORIDE 1,000 MG/10 ML VIAL IV ONE (09:47)
[2018-07-28 10:10] LABS: ABG Base Excess -3.1 MMOL/L (-2.5-2.5); ABG HCO3 21.8 MMOL/L (20-26); ABG Oxygen Saturation 99.5 % (95-100); ABG PCO2 41.3 MM HG (35-48); ABG PH 7.343 (7.35-7.45); ABG TCO2 20.8 MMOL/L (23-27); Glucose Heart Surgery 89 MG/DL (74-106); Hematocrit Heart Surgery 27.1 PERCENT (42-52); Hemoglobin Heart Surgery 8.7 G/DL (14.0-18.0); Ionized Calcium Arterial 0.93 MMOL/L (1.21-1.46); PCO2 Patient Temp Arterial 41.3 MMHG; PH Patient Temp Arterial 7.343; Patient Temperature 37 CELCIUS; Potassium Heart/CVR 4.4 MMOL/L (3.5-5.1); Sodium Heart/CVR 138 MMOL/L (135-145)
[2018-07-28 10:27] LABS: Immuno Free Light Chain Kappa 30.18 MG/DL (0.33-1.94); Immuno Free Light Chain Lambda 15.65 MG/DL (0.57-2.63); Immuno Free Light Chain Ratio 1.93 MG/DL (0.26-1.65)
[2018-07-28 10:52] LABS: Immunoglobulin A (Chem) 322 MG/DL (70-400); Immunoglobulin G (Chem) 1650 MG/DL (700-1600); Total Protein (Chem) 8.3 G/DL (6.4-8.3)
[2018-07-28 10:53] LABS: Immunoglobulin M (Chem) 112 MG/DL (40-230)
[2018-07-28 11:11] LABS: ABG Base Excess -4.2 MMOL/L (-2.5-2.5); ABG HCO3 20.9 MMOL/L (20-26); ABG Oxygen Saturation 99.7 % (95-100); ABG PCO2 37.3 MM HG (35-48); ABG PH 7.356 (7.35-7.45); ABG TCO2 19.5 MMOL/L (23-27); Glucose Heart Surgery 84 MG/DL (74-106); Hematocrit Heart Surgery 24.9 PERCENT (42-52); Ionized Calcium Arterial 0.89 MMOL/L (1.21-1.46); PCO2 Patient Temp Arterial 37.3 MMHG; PH Patient Temp Arterial 7.356; Patient Temperature 37 CELCIUS; Potassium Heart/CVR 4.3 MMOL/L (3.5-5.1); Sodium Heart/CVR 137 MMOL/L (135-145)
[2018-07-28 11:16] LABS: Albumin (SPE) 3.6 G/DL (3.2-5.3); Albumin (SPE) Rel % 43.4 %; Alpha 1 (SPE) 0.6 G/DL (0.1-0.4); Alpha 1 (SPE) Rel % 7.2 %; Alpha 2 (SPE) 1.2 G/DL (0.4-1.0); Alpha 2 (SPE) Rel % 14.6 %; Beta (SPE) 0.9 G/DL (0.5-1.1); Beta (SPE) Rel % 11.2 %; Gamma (SPE) Rel % 23.6 %
[2018-07-28] MEDS: HYDROmorphone 2 MG/1 ML VIAL IV PRN ×3 (12:33→23:45)
[2018-07-28] MEDS: ceFAZolin 1,000 MG in SYRINGE 1 EACH IV SCH ×3 (12:51→23:45)
[2018-07-28 12:53] LABS: Basophils % 0.2 % (0.0-0.8); Eosinophils # 0.3 10*3/uL (0.0-0.87); Eosinophils % 2.8 % (0.00-10.9); Hematocrit 27.7 VOL% (42.0-52.0); Hemoglobin 9.2 GM/DL (14.0-18.0); Immature Granulocytes % 1.3 %; Immature Granulocytes Absolute 0.12 #; Lymphocytes # 0.4 10*3/uL (1.4-4.0); Lymphocytes % 4.8 % (21.2-54.2); Mean Corpuscular HGB Conc 33.2 GM/DL (32-36); Mean Corpuscular Hemoglobin 28 PG (27-34); Mean Corpuscular Volume 83.9 FL (87-102); Monocytes # 0.8 10*3/uL (0.11-0.8); Neutrophils # 7.3 10*3/uL (1.4-7.4); Neutrophils % 81.9 % (38.7-73.9); Red Cell Distribution Width 17.4 % (9.3-17.3)
[2018-07-28 12:58] LABS: Platelet Count 188 T/CUMM (130-400)
[2018-07-28 12:59] LABS: INR 1.9; PT Patient Result 19.8 SECS; Partial Thromboplastin Time 36.6 SECS (0-40)
[2018-07-28] MEDS ORDERED: PROPOFOL 200 MG/20 ML VIAL IV ONE (13:01)
[2018-07-28] MEDS ORDERED: ROCURONIUM 100 MG/10 ML VIAL IV ONE (13:01)
[2018-07-28] MEDS ORDERED: SODIUM CHLORIDE 0.9% 1,500 ML IV ONE (13:01)
[2018-07-28] MEDS ORDERED: SEVOFLURANE 1 UNIT/15 MINUTE INH ONE (13:01)
[2018-07-28] MEDS ORDERED: SODIUM CHLORIDE 0.9% 2,000 ML IV ONE (13:01)
[2018-07-28] MEDS ORDERED: MIDAZOLAM 2 MG/2 ML VIAL ONE (13:01)
[2018-07-28] MEDS ORDERED: fentaNYL 100 MCG/2 ML VIAL ONE (13:02)
[2018-07-28] MEDS: AMIODARONE 200 MG TABLET PO SCH (13:13)
[2018-07-28] MEDS: CARVEDILOL 25 MG TABLET PO SCH ×2 (13:13→20:40)
[2018-07-28] MEDS: hydrALAZINE 25 MG TABLET PO SCH ×2 (13:13→20:40)
[2018-07-28] MEDS: ISOSORBIDE MONONITRATE 30 MG TABLET PO SCH (13:13)
[2018-07-28 13:17] LABS: Calcium 7.8 MG/DL (8.5-10.1); Osmolality,Calculated 291.8 MOS/KG (273-304); Potassium 5.1 MMOL/L (3.5-5.1)
[2018-07-28 13:44] LABS: Band Neutrophils 1 % (0-10); Eosinophils 3 % (0-10); Lymphocytes 5 % (20-55); Platelet Estimate Adequate; Segmented Neutrophils 82 % (50-85); Total Cells Counted 100
[2018-07-28 13:52] LABS: Acanthocytes Few; Anisocytosis Slight
[2018-07-28 16:53] LABS: Basophils % 0.1 % (0.0-0.8); Eosinophils # 0.2 10*3/uL (0.0-0.87); Eosinophils % 2.3 % (0.00-10.9); Hematocrit 21.2 VOL% (42.0-52.0); Hemoglobin 7.2 GM/DL (14.0-18.0); Immature Granulocytes % 1.4 %; Immature Granulocytes Absolute 0.12 #; Lymphocytes # 0.5 10*3/uL (1.4-4.0); Lymphocytes % 5.6 % (21.2-54.2); Mean Corpuscular Hemoglobin 28 PG (27-34); Mean Corpuscular Volume 83.1 FL (87-102); Mean Platelet Volume 9.9 FL (9.6-12.0); Monocytes # 0.6 10*3/uL (0.11-0.8); Monocytes % 7.5 % (1.7-12.7); Neutrophils # 6.9 10*3/uL (1.4-7.4); Neutrophils % 83.1 % (38.7-73.9); Platelet Count 221 T/CUMM (130-400); Red Blood Count 2.55 MC/CUMM (3.8-5.5); Red Cell Distribution Width 17.3 % (9.3-17.3); White Blood Count 8.3 T/CUMM (4-12)
[2018-07-28 17:03] LABS: INR 1.7; PT Patient Result 17.3 SECS
[2018-07-28 18:09] LABS: Basophils % 0.2 % (0.0-0.8); Eosinophils # 0.2 10*3/uL (0.0-0.87); Eosinophils % 2.5 % (0.00-10.9); Hematocrit 21.1 VOL% (42.0-52.0); Hemoglobin 7.1 GM/DL (14.0-18.0); Immature Granulocytes % 1.4 %; Immature Granulocytes Absolute 0.12 #; Lymphocytes # 0.5 10*3/uL (1.4-4.0); Lymphocytes % 5.3 % (21.2-54.2); Mean Corpuscular HGB Conc 33.6 GM/DL (32-36); Mean Corpuscular Hemoglobin 28 PG (27-34); Mean Corpuscular Volume 83.4 FL (87-102); Mean Platelet Volume 10.3 FL (9.6-12.0); Monocytes # 0.9 10*3/uL (0.11-0.8); Monocytes % 10.1 % (1.7-12.7); Neutrophils # 6.8 10*3/uL (1.4-7.4); Neutrophils % 80.5 % (38.7-73.9); Platelet Count 221 T/CUMM (130-400); Red Blood Count 2.53 MC/CUMM (3.8-5.5); Red Cell Distribution Width 17.6 % (9.3-17.3); White Blood Count 8.5 T/CUMM (4-12)
[2018-07-28 18:26] LABS: INR 1.8; PT Patient Result 18.5 SECS
[2018-07-28] MEDS: PHENYLEPHRINE DRIP 40 MG/250 ML PREMIX IV PRN (20:06)
[2018-07-28 23:03] LABS: Basophils % 0.1 % (0.0-0.8); Eosinophils # 0.3 10*3/uL (0.0-0.87); Eosinophils % 3.5 % (0.00-10.9); Hemoglobin 7.8 GM/DL (14.0-18.0); Immature Granulocytes % 1.7 %; Immature Granulocytes Absolute 0.14 #; Lymphocytes # 0.5 10*3/uL (1.4-4.0); Lymphocytes % 6.2 % (21.2-54.2); Mean Corpuscular HGB Conc 33.9 GM/DL (32-36); Mean Corpuscular Hemoglobin 28 PG (27-34); Mean Corpuscular Volume 83.3 FL (87-102); Mean Platelet Volume 10.4 FL (9.6-12.0); Monocytes # 0.7 10*3/uL (0.11-0.8); Monocytes % 8.6 % (1.7-12.7); Neutrophils # 6.6 10*3/uL (1.4-7.4); Neutrophils % 79.9 % (38.7-73.9); Platelet Count 222 T/CUMM (130-400); Red Blood Count 2.76 MC/CUMM (3.8-5.5); Red Cell Distribution Width 17.2 % (9.3-17.3); White Blood Count 8.3 T/CUMM (4-12)
[2018-07-28 23:10] LABS: INR 1.6; PT Patient Result 16.2 SECS
[2018-07-29] MEDS: INSULIN LISPRO 100 UNIT/ML SUBCUT SCH ×5 (00:06→23:50)
[2018-07-29] MEDS: PROPOFOL 1,000 MG/100 ML BOTTLE IV SCH ×6 (03:06→20:37)
[2018-07-29] MEDS: HYDROmorphone 2 MG/1 ML VIAL IV PRN ×3 (04:01→23:34)
[2018-07-29] MEDS: fentaNYL INJ 1,250 MCG in SODIUM CHLORIDE 0.9% 225 ML IV PRN ×3 (04:01→18:48)
[2018-07-29 04:47] LABS: Basophils % 0.2 % (0.0-0.8); Eosinophils % 3.1 % (0.00-10.9); Hematocrit 22.2 VOL% (42.0-52.0); Hemoglobin 7.5 GM/DL (14.0-18.0); Immature Granulocytes % 1.6 %; Lymphocytes # 0.4 10*3/uL (1.4-4.0); Mean Corpuscular HGB Conc 33.8 GM/DL (32-36); Mean Corpuscular Hemoglobin 28 PG (27-34); Mean Corpuscular Volume 81.9 FL (87-102); Mean Platelet Volume 10.7 FL (9.6-12.0); Monocytes # 1.1 10*3/uL (0.11-0.8); Monocytes % 10.3 % (1.7-12.7); Neutrophils # 8.2 10*3/uL (1.4-7.4); Neutrophils % 80.8 % (38.7-73.9); Platelet Count 212 T/CUMM (130-400); Red Blood Count 2.71 MC/CUMM (3.8-5.5); Red Cell Distribution Width 17.3 % (9.3-17.3); White Blood Count 10.2 T/CUMM (4-12)
[2018-07-29 04:48] LABS: Eosinophils # 0.3 10*3/uL (0.0-0.87); Immature Granulocytes Absolute 0.16 #
[2018-07-29 05:04] LABS: INR 1.5; PT Patient Result 15.4 SECS
[2018-07-29 05:12] LABS: Calcium 7.6 MG/DL (8.5-10.1); Osmolality,Calculated 295.7 MOS/KG (273-304); Potassium 4.9 MMOL/L (3.5-5.1)
[2018-07-29 05:15] LABS: Albumin 2.4 G/DL (3.4-5.0); Bilirubin,Total 1.4 MG/DL (0.2-1.0); Calcium 7.6 MG/DL (8.5-10.1); Osmolality,Calculated 297.7 MOS/KG (273-304); Potassium 4.9 MMOL/L (3.5-5.1)
[2018-07-29 05:16] LABS: Band Neutrophils 4 % (0-10); Eosinophils 2 % (0-10); Hypochromasia 2+; Lymphocytes 4 % (20-55); Ovalocytes Slight; Platelet Estimate Adequate; Segmented Neutrophils 83 % (50-85); Total Cells Counted 100
[2018-07-29] MEDS: ceFAZolin 1,000 MG in SYRINGE 1 EACH IV SCH ×4 (05:28→23:37)
[2018-07-29] MEDS: PHENYLEPHRINE DRIP 40 MG/250 ML PREMIX IV PRN ×5 (06:28→19:24)
[2018-07-29] MEDS: FUROSEMIDE 40 MG/4 ML VIAL IV SCH ×2 (08:58→17:04)
[2018-07-29] MEDS: PANTOPRAZOLE 40 MG VIAL IV SCH (08:58)
[2018-07-29] MEDS: CARVEDILOL 25 MG TABLET PO SCH (08:59)
[2018-07-29] MEDS: hydrALAZINE 25 MG TABLET PO SCH (08:59)
[2018-07-29] MEDS: ISOSORBIDE MONONITRATE 30 MG TABLET PO SCH (08:59)
[2018-07-29] MEDS: AMIODARONE 200 MG TABLET PO SCH (08:59)
[2018-07-29 11:38] LABS: Basophils % 0.2 % (0.0-0.8); Eosinophils # 0.2 10*3/uL (0.0-0.87); Hematocrit 22.3 VOL% (42.0-52.0); Hemoglobin 7.6 GM/DL (14.0-18.0); Immature Granulocytes % 2.5 %; Immature Granulocytes Absolute 0.42 #; Lymphocytes # 0.5 10*3/uL (1.4-4.0); Lymphocytes % 2.9 % (21.2-54.2); Mean Corpuscular HGB Conc 34.1 GM/DL (32-36); Mean Corpuscular Hemoglobin 29 PG (27-34); Mean Corpuscular Volume 83.8 FL (87-102); Mean Platelet Volume 10.1 FL (9.6-12.0); Monocytes # 1.2 10*3/uL (0.11-0.8); Monocytes % 7.4 % (1.7-12.7); NRBC # 0.02 10*3/uL; Neutrophils # 14.2 10*3/uL (1.4-7.4); Platelet Count 224 T/CUMM (130-400); Red Blood Count 2.66 MC/CUMM (3.8-5.5); Red Cell Distribution Width 17.2 % (9.3-17.3); White Blood Count 16.5 T/CUMM (4-12)
[2018-07-29 11:45] LABS: INR 1.4; PT Patient Result 14.7 SECS
[2018-07-29 11:56] LABS: Band Neutrophils 5 % (0-10); Hypochromasia 2+; Lymphocytes 1 % (20-55); Platelet Estimate Adequate; Segmented Neutrophils 86 % (50-85); Total Cells Counted 100
[2018-07-29] MEDS ORDERED: SODIUM CHLORIDE 0.9% 1,000 ML IV PRN ×2 (14:00→20:40)
[2018-07-29] MEDS ORDERED: PHENYLEPHRINE INJ 160 MG in SODIUM CHLORIDE 0.9% 234 ML IV PRN (19:37)
[2018-07-29 20:22] LABS: Basophils % 0.1 % (0.0-0.8); Eosinophils # 0.1 10*3/uL (0.0-0.87); Eosinophils % 0.5 % (0.00-10.9); Hematocrit 19.5 VOL% (42.0-52.0); Hemoglobin 6.6 GM/DL (14.0-18.0); Immature Granulocytes % 5.5 %; Immature Granulocytes Absolute 0.97 #; Lymphocytes # 1.1 10*3/uL (1.4-4.0); Lymphocytes % 6.4 % (21.2-54.2); Mean Corpuscular HGB Conc 33.8 GM/DL (32-36); Mean Corpuscular Hemoglobin 29 PG (27-34); Mean Corpuscular Volume 84.8 FL (87-102); Mean Platelet Volume 10.4 FL (9.6-12.0); Monocytes # 1.6 10*3/uL (0.11-0.8); NRBC # 0.05 10*3/uL; Neutrophils # 13.8 10*3/uL (1.4-7.4); Neutrophils % 78.5 % (38.7-73.9); Platelet Count 189 T/CUMM (130-400); Red Cell Distribution Width 16.7 % (9.3-17.3); White Blood Count 17.6 T/CUMM (4-12)
[2018-07-29 20:34] LABS: INR 1.3; Partial Thromboplastin Time 31.8 SECS (0-40)
[2018-07-29 20:47] LABS: Band Neutrophils 1 % (0-10); Lymphocytes 5 % (20-55); Platelet Estimate Normal; Segmented Neutrophils 92 % (50-85); Total Cells Counted 100
[2018-07-29 20:48] LABS: Hypochromasia Slight
[2018-07-29 20:49] LABS: Microcytosis Slight
[2018-07-30] MEDS: PROPOFOL 1,000 MG/100 ML BOTTLE IV SCH (01:32)
[2018-07-30] MEDS: HYDROmorphone 2 MG/1 ML VIAL IV PRN (01:45)
[2018-07-30 04:35] VITALS: BP 58/37
[2018-08-03 13:16] LABS: Coag Factor VII Assay, P 27 % (65 - 180)
[2018-08-03 13:40] LABS: von Willebrand Factor Activity 330 % (55 - 200)
[2018-08-03 19:16] LABS: Factor V Leiden (R506Q) Mutati Negative (Negative)
[2018-08-12 12:04] LABS: Coag Factor VII Assay, P 15 % (65 - 180); DRVVT Mix Ratio (Mayo Reflex) 1.4 ratio (0.0 - 1.1); PT Mix 1:1 (Mayo Reflex) 14.6 sec
[2018-08-12 12:13] LABS: INR 3.9
[2018-08-12 12:14] LABS: Thrombin Time (Bovine), P 16
[2018-08-12 12:24] LABS: Fibrinogen, P > 800
[2018-08-12 12:26] LABS: von Willebrand Factor Activity 534
== END 2018-07-30 03:52 | disposition expired | DRG 659 ==
LOC: N.ED 15:43 → N.EDINP 18:00 → N.3E 20:10 → N.CC 07-22 09:54
PROVIDERS: ADMIT Family Medicine; ATTEND Family Medicine
PROC: IREMBBI (2018-07-24 12:15)